=== PATIENT | female | born 1980 | race Caucasian/White ===

== ENCOUNTER → 2020-09-06 12:57 | Outpatient (BNVA) | payer MEDICAID, SELFPAY | PROVIDERS: PCP Internal Medicine; Visit Provider Internal Medicine | DX: S40.011A Contusion of right shoulder, initial encounter (principal); S50.01XA Contusion of right elbow, initial encounter; S30.0XXA Contusion of lower back and pelvis, initial encounter; W18.2XXA Fall in (into) shower or empty bathtub, initial encounter | CPT/HCPCS: 73030; 99203 ==

== ENCOUNTER → 2020-09-08 14:28 | Outpatient (BNVA) | payer MEDICAID, SELFPAY | PROVIDERS: PCP Hospitalist; Visit Provider Internal Medicine | DX: S40.011A Contusion of right shoulder, initial encounter (principal); S60.211A Contusion of right wrist, initial encounter; S30.0XXA Contusion of lower back and pelvis, initial encounter; W18.2XXA Fall in (into) shower or empty bathtub, initial encounter | CPT/HCPCS: 99213 ==

== ENCOUNTER 2020-12-12 12:15 | Outpatient (REF) | payer OTHER, SELFPAY ==
[2020-12-12 13:17] LABS: Erythrocyte Sedimentation Rate 5 MM/HR (0-20)
[2020-12-12 13:59] LABS: Rheumatoid Factor < 15.0 IU/mL (<15.0)
[2020-12-12 14:22] LABS: TSH reflex Free T4 1.17 mIU/mL (0.32-4.0)
[2020-12-14 12:21] LABS: CRP High Sensitivity 0.8 mg/L
== END 2020-12-12 12:16 | disposition home or self-care (01) ==
LOC: HO.LAB 12:15
PROVIDERS: PCP Hospitalist; Visit Provider Hospitalist
DX: M19.041 Primary osteoarthritis, right hand (principal); M19.042 Primary osteoarthritis, left hand; R53.82 Chronic fatigue, unspecified
CPT/HCPCS: 36415; 84443; 85652; 86141; 86431

== ENCOUNTER 2021-06-13 10:33 | Outpatient (REF) | payer OTHER, SELFPAY ==
[2021-06-14 09:09] LABS: CT PCR NOT DETECTED (Not Detect.); NG PCR NOT DETECTED (Not Detect.)
[2021-06-15 16:51] LABS: HPV mRNA E6/E7 rflx Not Detected (Not Detected)
== END 2021-06-13 10:34 | disposition home or self-care (01) ==
LOC: HO.LAB 10:33
PROVIDERS: Visit Provider Advanced Practice Midwife
DX: Z01.411 Encounter for gynecological examination (general) (routine) with abnormal findings (principal); Z11.51 Encounter for screening for human papillomavirus (HPV); Z11.3 Encounter for screening for infections with a predominantly sexual mode of transmission; Z98.890 Other specified postprocedural states; B00.9 Herpesviral infection, unspecified
CPT/HCPCS: 87491; 87591; 87624; 88142

== ENCOUNTER 2021-07-11 10:22 | Outpatient (REF) | payer OTHER, SELFPAY ==
[2021-07-11 16:08] LABS: CT PCR NOT DETECTED (Not Detect.); NG PCR NOT DETECTED (Not Detect.)
== END 2021-07-11 10:23 | disposition home or self-care (01) ==
LOC: HO.LAB 10:22
PROVIDERS: Visit Provider Obstetrics & Gynecology
DX: Z30.09 Encounter for other general counseling and advice on contraception (principal)
CPT/HCPCS: 87491; 87591

== ENCOUNTER → 2021-07-20 15:16 | Outpatient (BNVA) | payer OTHER, SELFPAY | PROVIDERS: Visit Provider Obstetrics & Gynecology ==

== ENCOUNTER 2021-07-28 11:15 | Outpatient (REF) | payer OTHER, SELFPAY | END 2021-07-28 11:16 | disposition home or self-care (01) | LOC: HO.LNP 11:15 | PROVIDERS: Visit Provider Family Medicine | DX: Z00.00 Encounter for general adult medical examination without abnormal findings (principal); B34.9 Viral infection, unspecified | CPT/HCPCS: U0003; U0005 ==

== ENCOUNTER 2021-08-08 11:40 | Outpatient (REF) | payer OTHER, SELFPAY ==
--- NOTE | ~2021-08-08 | MM_ITS ---
EXAMINATION: MM SCREENING DIGITAL BREAST TOMOSYNTHESIS, BILATERAL CLINICAL INFORMATION: Screening. Asymptomatic. The lifetime risk of breast cancer based on the Tyrer-Cuzick Model is 12.2%. COMPARISON: Mammography: None TECHNIQUE: Digital breast tomosynthesis is performed in both the craniocaudal and mediolateral oblique views along with computer-aided detection (CAD). Synthesized 2D images are generated from the tomosynthesis. Additional left exaggerated craniocaudal view performed. FINDINGS: The breasts are extremely dense, which lowers the sensitivity of mammography (ACR BI-RADS breast composition Category d). There is question of a partially circumscribed density about the medial aspect of the right breast approximately 3 cm from the nipple measuring approximately 1 cm in diameter. This may represent dense breast parenchyma rather than a true mass. No mediolateral oblique view correlate is identified. No suspicious abnormal dominant masses or microcalcifications seen within the left breast. MM/MM tomosynthesis screening BI IMPRESSION: Right breast density for further evaluation with spot compression view. ASSESSMENT: BI-RADS 0: Incomplete - Need Additional Imaging Evaluation RECOMMENDATION: 1. Additional views of the right breast. 2. Targeted ultrasound if warranted after review of the additional views. 3. Radiology department staff will contact the patient for additional imaging. This patient's information was entered into a reminder system with a target due date for their next mammogram.
== END 2021-08-08 11:41 | disposition home or self-care (01) ==
LOC: HO.MAMMO 11:40
PROVIDERS: PCP Hospitalist; Visit Provider Advanced Practice Midwife
DX: Z12.31 Encounter for screening mammogram for malignant neoplasm of breast (principal)
CPT/HCPCS: 77063; 77067

== ENCOUNTER 2021-08-17 12:43 | Outpatient (REF) | payer OTHER, SELFPAY ==
--- NOTE | ~2021-08-17 | MM_ITS ---
EXAMINATION: MM DIAGNOSTIC DIGITAL BREAST TOMOSYNTHESIS, RIGHT CLINICAL INFORMATION: Recall from baseline exam for question of partially circumscribed density right breast. TC score 12%. COMPARISON: Baseline mammography 08/08/2021 TECHNIQUE: Digital breast tomosynthesis is performed. 2D images are generated from the tomosynthesis. The following views are obtained: Rolled CC x2, spot CC FINDINGS: The breasts are heterogeneously dense, which may obscure small masses (ACR BI-RADS breast composition Category c). Breast tissue composition borders on extremely dense. The additional views show no mass or architectural abnormality. There is no suspicious parenchymal asymmetry. Results are discussed with the patient at time of visit. MM/MM tomosynthesis added views R IMPRESSION: Additional views are unremarkable. ASSESSMENT: BI-RADS 1: Negative RECOMMENDATION: Routine annual mammography screening. This patient's information was entered into a reminder system with a target due date for their next mammogram.
== END 2021-08-17 12:44 | disposition home or self-care (01) ==
LOC: HO.MAMMO 12:43
PROVIDERS: Visit Provider Advanced Practice Midwife
DX: R92.2 Inconclusive mammogram (principal)
CPT/HCPCS: 77061; 77065

== ENCOUNTER → 2021-08-22 12:39 | Outpatient (BNVA) | payer OTHER, SELFPAY | PROVIDERS: PCP Hospitalist; Visit Provider Obstetrics & Gynecology ==

== ENCOUNTER 2021-09-15 13:58 | Outpatient (REF) | payer OTHER, SELFPAY ==
[2021-09-15 14:12] LABS: Appearance Urine CLOUDY; Color Urine YELLOW; Glucose Urine UA NEG (NEG); Leukocyte Esterase Urine 3+ (NEG); Nitrite Urine NEG (NEG); Specific Gravity - Urine <= 1.005 (1.005-1.025); Urine Blood 3+ (NEG); Urine Ketones NEG (NEG); Urine Protein TRACE MG/DL (NEG-TRACE)
[2021-09-15 14:27] LABS: Bacteria Urine 2+ /LPF; Squamous Epithelial Cell Urine 1+ /LPF; WBC Clumps Urine NOTED
== END 2021-09-15 13:59 | disposition home or self-care (01) ==
LOC: HO.LNP 13:58
PROVIDERS: Visit Provider Hospitalist
DX: R30.0 Dysuria (principal)
CPT/HCPCS: 81001; 81003

== ENCOUNTER 2021-09-15 14:37 | Outpatient (REF) | payer OTHER, SELFPAY | END 2021-09-15 14:38 | disposition home or self-care (01) | LOC: HO.LAB 14:37 | PROVIDERS: Visit Provider Hospitalist | DX: N39.0 Urinary tract infection, site not specified (principal) | CPT/HCPCS: 87086; 87147 ==

== ENCOUNTER 2021-11-07 11:29 | Outpatient (REF) | payer OTHER, SELFPAY ==
[2021-11-07 14:57] LABS: Anion Gap 8 (12-20); Blood Urea Nitrogen 16 mg/dL (9-16); Calcium 9.6 mg/dL (8.4-10.2); Carbon Dioxide 28 mmol/L (22-29); Chloride 107 mmol/L (96-108); Estimated Glomerular Filt Rate > 60; Glucose Random 80 mg/dL (60-115); Potassium 4.2 mmol/L (3.3-5.1); Sodium 139 mmol/L (135-145)
== END 2021-11-07 11:30 | disposition home or self-care (01) ==
LOC: HO.WFDLDS 11:29
PROVIDERS: Visit Provider Hospitalist
DX: M54.41 Lumbago with sciatica, right side (principal); Z87.440 Personal history of urinary (tract) infections
CPT/HCPCS: 36415; 80048; 87086

== ENCOUNTER 2022-09-26 11:25 | Emergency (ER) | payer OTHER, SELFPAY ==
--- NOTE | 2022-09-26 11:29 | ECG_ITS ---
Test Reason : cp Blood Pressure : / mmHG Vent. Rate : 069 BPM Atrial Rate : 069 BPM P-R Int : 138 ms QRS Dur : 088 ms QT Int : 388 ms P-R-T Axes : 065 078 024 degrees QTc Int : 415 ms Normal sinus rhythm with sinus arrhythmia RSR' or QR pattern in V1 suggests right ventricular conduction delay Otherwise normal ECG When compared with ECG of 22-JUL-2018 14:20, No significant change was found Referred By: Generic ED Physician Electronically Signed By:IVONNE FARIAS MD
--- NOTE | 2022-09-26 11:37 | ED_ITS ---
HPI - General Adult General Chief complaint: Arrhythmia/Palpitations <Anne Davis MD - Last Filed: 09/26/22 11:42> Stated complaint: Elevated Heart Rate Dizzy Chest Discomfort <Anne Davis MD - Last Filed: 09/26/22 11:42> Time Seen by Provider: 09/26/22 16:09 <Anne Davis MD - Last Filed: 09/26/22 11:42> Source: patient <Rene Baugh MD - Last Filed: 09/26/22 16:53> Mode of arrival: ambulatory <Rene Baugh MD - Last Filed: 09/26/22 16:53> Limitations: no limitations <Rene Buagh MD - Last Filed: 09/26/22 16:53> History of Present Illness HPI narrative: 41-year-old female with no significant past medical history presents to the emergency department today with palpitations. 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 Patient's states she has had these episodes previously, associated with some chest pain which is midsternal, pressure-like and nonradiating. There are no other associated symptoms such as nausea or shortness of breath. The patient states that since she has been here the pressure-like pain has diminished significantly and she does not feel palpitations. She has no risk factors for pulmonary embolism, has no cardiac risk factors except for cigarette smoking. <Rene Baugh MD - Last Filed: 09/26/22 16:53> Onset (ago): hour(s) (2) <Rene Baugh MD - Last Filed: 09/26/22 16:53> Location: chest <Rene Baugh MD - Last Filed: 09/26/22 16:53> Radiation: non-radiation <Rene Baugh MD - Last Filed: 09/26/22 16:53> Severity: moderate <Rene Baugh MD - Last Filed: 09/26/22 16:53> Quality: dull <Rene Baugh MD - Last Filed: 09/26/22 16:53> Pain Consistency: now resolved <Rene Baugh MD - Last Filed: 09/26/22 16:53> Relieving factors: none <Rene Baugh MD - Last Filed: 09/26/22 16:53> Exacerbating factors: none <Rene Baugh MD - Last Filed: 09/26/22 16:53> Associated symptoms: denies other symptoms <Rene Baugh MD - Last Filed: 09/26/22 16:53> Treatments prior to arrival: none <Rene Baugh MD - Last Filed: 09/26/22 16:53> Related Data Home medications: Home Medications Medication Instructions Recorded Confirmed omeprazole 20 mg tablet,delayed 20 mg PO DAILY 09/15/20 08/03/21 release levonorgestrel 20 mcg/24 hours (8 0 insert intrauterine ONCE 08/03/21 08/03/21 yrs) 52 mg intrauterine device (Mirena) fluoxetine 20 mg capsule 20 mg PO DAILY 11/07/21 Previous Rx's Medication Instructions Recorded hydroxyzine HCl 25 mg tablet 25 mg PO QID PRN itching 1 month 08/03/21 #90 tabs valacyclovir 1 gram tablet 1,000 mg PO DAILY herpatic 11/07/21 (Valtrex) outbreaks #7 tabs gabapentin 300 mg capsule 300 mg PO Q8H #90 caps 11/21/21 ibuprofen 800 mg tablet 800 mg PO Q8H #90 tabs 11/21/21 <Anne Davis MD - Last Filed: 09/26/22 11:42> Allergies/adverse reactions: Allergies Allergy/AdvReac Type Severity Reaction Status Date / Time No Known Allergies Allergy Verified 11/21/21 13:54 <Anne Davis MD - Last Filed: 09/26/22 11:42> Review of Systems Review of Systems: Yes all other systems are reviewed and are negative <Rene Baugh MD - Last Filed: 09/26/22 16:53> Constitutional: Constitutional: Denies chills, Denies fever(s) and Denies weakness <Rene Baugh MD - Last Filed: 09/26/22 16:53> Eyes: Eyes: Reports no additional eye complaints <Rene Baugh MD - Last Filed: 09/26/22 16:53> ENT: Reports system reviewed and no additional complaints, except as documented <Rene Baugh MD - Last Filed: 09/26/22 16:53> Cardiovascular: Cardiovascular: Reports chest pain, Reports chest pain at rest, Denies syncope, Reports rapid heart rate, Denies pedal edema, Denies edema and Denies dyspnea <Rene Baugh MD - Last Filed: 09/26/22 16:53> Respiratory: Respiratory: Denies cough, Denies dyspnea and Denies wheezing <Rene Baugh MD - Last Filed: 09/26/22 16:53> Gastrointestinal: Gastrointestinal: Reports no additional gastrointestinal complaints <Rene Baugh MD - Last Filed: 09/26/22 16:53> Genitourinary: Genitourinary: Reports no additional female genitourinary complaints <Rene Baugh MD - Last Filed: 09/26/22 16:53> Musculoskeletal: Musculoskeletal: Denies back pain, Denies myalgias and Denies muscle weakness <Rene Baugh MD - Last Filed: 09/26/22 16:53> Integumentary/Breasts: Skin/Breast: Reports system reviewed and no additional complaints, except as docu <Rene Baugh MD - Last Filed: 09/26/22 16:53> Neurologic: Denies Abnormal speech present, Denies syncope and Denies weakness <Rene Baugh MD - Last Filed: 09/26/22 16:53> Psychiatric: Psychiatric: Denies depression, Denies hopelessness and Reports panic attacks <Rene Baugh MD - Last Filed: 09/26/22 16:53> Hematologic/Lymphatic: Hematologic/Lymphatic: Denies easy bleeding and Denies easy bruising <Rene Baugh MD - Last Filed: 09/26/22 16:53> Allergic/Immunologic: Allergic/Immunologic: Denies wheezing <Rene Baugh MD - Last Filed: 09/26/22 16:53> [facility] Past Medical History Attestation statement: The following information was validated with the patient. <Rene Baugh MD - Last Filed: 09/26/22 16:53> [facility] Narrative: Patient states she has a history of PTSD and depression and is on fluoxetine <Rene Baugh MD - Last Filed: 09/26/22 16:53> Medical History: Medical History Depression PTSD (post-traumatic stress disorder) <Anne Davis MD - Last Filed: 09/26/22 11:42> Surgical History: Surgical History Ectopic History of miscarriage History of surgery <Anne Davis MD - Last Filed: 09/26/22 11:42> Family History Family History: Family History Father No problems noted. Mother Hypertension Maternal Grandmother Diabetes Breast cancer Maternal Grandfather Diabetes Maternal Uncle Diabetes <Anne Davis MD - Last Filed: 09/26/22 11:42> Social History Social History: Social History Housing: Other Housing Other:: complex Patient Tobacco Use Status: Current someday Tobacco user Cigarettes Per Day: 6 e-Cigarette/Vaping Use: Never Used Second Hand Smoke Exposure: No Advance Directives: No Advance Directives Information Provided: No Current occupational status: employed <Anne Davis MD - Last Filed: 09/26/22 11:42> Physical Exam ED Vital Signs: Vital Signs - 24 hr 09/26/22 11:39 Temperature 98.1 F Pulse Rate 80 Respiratory Rate 16 Blood Pressure 113/75 Pulse Oximetry 100 Oxygen Delivery Method Room Air BMI result Body Mass Index 21.1 <Anne Davis MD - Last Filed: 09/26/22 11:42> Vital Signs - 24 hr 09/26/22 11:39 Temperature 98.1 F Pulse Rate 80 Respiratory Rate 16 Blood Pressure 113/75 Pulse Oximetry 100 Oxygen Delivery Method Room Air BMI result Body Mass Index 21.1 <Rene Baugh MD - Last Filed: 09/26/22 16:53> Vital signs are normal. Pulse oximetry is normal <Rene Baugh MD - Las t Filed: 09/26/22 16:53> Const General: cooperative, healthy appearing, comfortable and no acute distress <Rene Baugh MD - Last Filed: 09/26/22 16:53> Nutritional Appearance: average body habitus <Rene Buagh MD - Last Filed: 09/26/22 16:53> Orientation/consciousness: patient oriented x3 <Rene Baugh MD - Last Filed: 09/26/22 16:53> HENMT Head: Yes normal to inspection, Yes normocephalic and Yes atraumatic <Rene Baugh MD - Last Filed: 09/26/22 16:53> Ears: hearing grossly normal bilaterally and external ears normal <Rene Baugh MD - Last Filed: 09/26/22 16:53> General nose exam: Normal external nose present <Rene Baugh MD - Last Filed: 09/26/22 16:53> Face and sinus: Yes normal facial exam <Rene Baugh MD - Last Filed: 09/26/22 16:53> Mouth: Normal oral and palatal mucosa present <Rene Baugh MD - Last Filed: 09/26/22 16:53> Eyes Eyelids: Yes eyelids normal <Rene Baugh MD - Last Filed: 09/26/22 16:53> Conjunctivae: conjunctivae normal <Rene Baugh MD - Last Filed: 09/26/22 16:53> Sclerae: sclerae normal <Rene Baugh MD - Last Filed: 09/26/22 16:53> Pupils: Equal, round and reactive pupils present <Rene Baugh MD - Last Filed: 09/26/22 16:53> EOM: EOMs intact bilaterally <Rene Baugh MD - Last Filed: 09/26/22 16:53> Neck Neck: Yes normal visual inspection and Yes full ROM <Rene Baugh MD - Last Filed: 09/26/22 16:53> Chest Chest palpation & inspection: normal inspection of the chest, no localized rib tenderness and no tenderness <Rene Baugh MD - Last Filed: 09/26/22 16:53> Resp Effort & Inspection: normal respiratory effort, able to speak in complete sentences and no cough <Rene Baugh MD - Last Filed: 09/26/22 16:53> Cardio Jugular venous distension: no JVD <Rene Baugh MD - Last Filed: 09/26/22 16:53> Palpation: normal PMI <Rene Baugh MD - Last Filed: 09/26/22 16:53> Rate: regular rate <eRne Baugh MD - Last Filed: 09/26/22 16:53> Rhythm: regular rhythm <Rene Baugh MD - Last Filed: 09/26/22 16:53> Heart sounds: S1 normal heart sound present, S2 normal heart sound present, no gallops, no murmurs and no rubs <Rene Baugh MD - Last Filed: 09/26/22 16:53> GI Inspection: Yes normal to inspection <Rene Baugh MD - Last Filed: 09/26/22 16:53> Back/Spine/Pelvis Cervical Spine: normal cervical lordosis and cervical ROM normal <Rene Baugh MD - Last Filed: 09/26/22 16:53> Thoracic/Lumbar Spine: thoracic and lumbar spine normal to inspection <Rene Baugh MD - Last Filed: 09/26/22 16:53> Skin General skin exam: no rashes or lesions noted, no erythema and no pallor <Rene Baugh MD - Last Filed: 09/26/22 16:53> Neuro General: patient oriented x3, gait normal and no focal motor deficits <Rene Baugh MD - Last Filed: 09/26/22 16:53> Cranial nerves: Yes CN's II-XII intact bilaterally and Yes Equal, round and reactive pupils present <Rene Baugh MD - Last Filed: 09/26/22 16:53> Cognition (Neuro): normal cognition <Rene Baugh MD - Last Filed: 09/26/22 16:53> Speech: No Abnormal speech present <Rene Baugh MD - Last Filed: 09/26/22 16:53> Gait exam (Neuro): Normal gait present <Rene Baugh MD - Last Filed: 09/26/22 16:53> Extrem General: No cyanosis and No edema <Rene Baugh MD - Last Filed: 09/26/22 16:53> Course Course Course Narrative: triage note: pt comes c/o palpitations, CP, lightheaded, has happened before, never passed out, this time lasted 20 minutes,, at work HR 180. works [employer] doctor in [facility] sent her here not on meds, takes fluoxetine for anxiety , never had holter chest soareness at this time hr controlled with deep breaths labs orderd, ekg wnl, sinus hr 69, qtc 415 possibly having episodes of SVT <Anne Davis MD - Last Filed: 09/26/22 11:42> Medical Decision Making [facility] Narrative Medical decision making narrative: 41-year-old female with no significant medical history presents to the emergency department today complaining of palpitations. The patient is noted to have normal laboratory studies including a normal troponin and normal EKG. The patient has never had a Holter monitor placed although, this has happened in the past. At this time, the patient will be discharged home to follow-up with her primary care doctor. She is instructed to ask for a Holter monitor, and will also try and obtain an EKG if this happens again while she is at work <Rene Baugh MD - Last Filed: 09/26/22 16:53> Differential Diagnosis Differential Diagnosis: SVT, atrial flutter, atrial fibrillation, ventricular tachycardia (unlikely <Rene Baugh MD - Last Filed: 09/26/22 16:53> Medical Records Medical records reviewed: Yes I reviewed the patient's medical records. <Rene Baugh MD - Last Filed: 09/26/22 16:53> Lab Data Lab results reviewed: Yes I reviewed the patient's lab results. <Rene Baugh MD - Last Filed: 09/26/22 16:53> Result diagrams: : 09/26/22 11:50 09/26/22 11:50 <Anne Davis MD - Last Filed: 09/26/22 11:42> Labs: Lab Results 09/26/22 09/26/22 09/26/22 Range/Units 11:50 11:50 11:50 WBC 6.9 (4.8-10.8) X10*3/uL RBC 4.73 (4.20-5.50) X10*6/uL Hgb 14.0 (12.0-16.0) g/dl Hct 42.5 (37.0-47.0) % MCV 89.9 (80.0-98.0) fL MCH 29.6 (27.0-33.0) pg MCHC 32.9 (31.0-35.0) g/dl RDW 13.4 (11.0-16.0) % Plt Count 283 (160-400) X10*3/uL MPV 9.6 (9.4-12.3) fL Immature Gran % (Auto) 0.1 (0.0-0.4) % Neut % (Auto) 57.1 (45-73) % Lymph % (Auto) 32.8 (20-40) % [place] % (Auto) 7.8 (2-11) % Eos % (Auto) 1.6 (0-4) % Baso % (Auto) 0.6 (0-2) % Lymph # (Auto) 2.3 (1.2-4.9) X10*3/uL [place] # (Auto) 0.5 (0.1-1.2) X10*3/uL Eos # (Auto) 0.1 (0.0-0.4) X10*3/uL Baso # (Auto) 0.0 (0.0-0.2) X10*3/uL Abs Immat Gran (auto) 0.01 (0.00-0.03) X10*3/uL Absolute Neuts (auto) 3.9 (2.0-8.3) x10*3/uL Absolute Nucleated RBC 0.000 (0.0-0.012) X10*3/uL Nucleated RBC % (auto) 0.0 (0.0-0.2) /100WBC Sodium 140 (135-145) mmol/L Potassium 4.3 (3.3-5.1) mmol/L Chloride 105 (96-108) mmol/L Carbon Dioxide 27 (22-29) mmol/L Anion Gap 12 (12-20) BUN 17 H (9-16) mg/dL Creatinine 0.75 (0.5-1.4) mg/dL Estim Creat Clear Calc 94.4 Estimated GFR > 60 Random Glucose 83 (60-115) mg/dL Calcium 9.7 (8.4-10.2) mg/dL Total Bilirubin 0.4 (0.0-1.0) mg/dL Direct Bilirubin 0.2 (0.0-0.5) mg/dL AST 13 (5-31) U/L ALT 9 (0-31) U/L Alkaline Phosphatase 56 (39-117) U/L Troponin I High Sens < 3.5 (<3.5-17.0) ng/L B-Natriuretic Peptide (<100) pg/mL Total Protein 7.8 (6.5-8.0) g/dL Albumin 4.6 (3.5-5.0) g/dL TSH (0.32-4.0) uIU/mL Beta HCG, Quant mIU/mL 09/26/22 09/26/22 09/26/22 Range/Units 11:50 11:50 11:50 WBC (4.8-10.8) X10*3/uL RBC (4.20-5.50) X10*6/uL Hgb (12.0-16.0) g/dl Hct (37.0-47.0) % MCV (80.0-98.0) fL MCH (27.0-33.0) pg MCHC (31.0-35.0) g/dl RDW (11.0-16.0) % Plt Count (160-400) X10*3/uL MPV (9.4-12.3) fL Immature Gran % (Auto) (0.0-0.4) % Neut % (Auto) (45-73) % Lymph % (Auto) (20-40) % [place] % (Auto) (2-11) % Eos % (Auto) (0-4) % Baso % (Auto) (0-2) % Lymph # (Auto) (1.2-4.9) X10*3/uL [place] # (Auto) (0.1-1.2) X10*3/uL Eos # (Auto) (0.0-0.4) X10*3/uL Baso # (Auto) (0.0-0.2) X10*3/uL Abs Immat Gran (auto) (0.00-0.03) X10*3/uL Absolute Neuts (auto) (2.0-8.3) x10*3/uL Absolute Nucleated RBC (0.0-0.012) X10*3/uL Nucleated RBC % (auto) (0.0-0.2) /100WBC Sodium (135-145) mmol/L Potassium (3.3-5.1) mmol/L Chloride (96-108) mmol/L Carbon Dioxide (22-29) mmol/L Anion Gap (12-20) BUN (9-16) mg/dL Creatinine (0.5-1.4) mg/dL Estim Creat Clear Calc Estimated GFR Random Glucose (60-115) mg/dL Calcium (8.4-10.2) mg/dL Total Bilirubin (0.0-1.0) mg/dL Direct Bilirubin (0.0-0.5) mg/dL AST (5-31) U/L ALT (0-31) U/L Alkaline Phosphatase (39-117) U/L Troponin I High Sens (<3.5-17.0) ng/L B-Natriuretic Peptide 19 (<100) pg/mL Total Protein (6.5-8.0) g/dL Albumin (3.5-5.0) g/dL TSH 1.63 (0.32-4.0) uIU/mL Beta HCG, Quant < 2 mIU/mL 09/26/22 Range/Units 15:20 WBC (4.8-10.8) X10*3/uL RBC (4.20-5.50) X10*6/uL Hgb (12.0-16.0) g/dl Hct (37.0-47.0) % MCV (80.0-98.0) fL MCH (27.0-33.0) pg MCHC (31.0-35.0) g/dl RDW (11.0-16.0) % Plt Count (160-400) X10*3/uL MPV (9.4-12.3) fL Immature Gran % (Auto) (0.0-0.4) % Neut % (Auto) (45-73) % Lymph % (Auto) (20-40) % [place] % (Auto) (2-11) % Eos % (Auto) (0-4) % Baso % (Auto) (0-2) % Lymph # (Auto) (1.2-4.9) X10*3/uL [place] # (Auto) (0.1-1.2) X10*3/uL Eos # (Auto) (0.0-0.4) X10*3/uL Baso # (Auto) (0.0-0.2) X10*3/uL Abs Immat Gran (auto) (0.00-0.03) X10*3/uL Absolute Neuts (auto) (2.0-8.3) x10*3/uL Absolute Nucleated RBC (0.0-0.012) X10*3/uL Nucleated RBC % (auto) (0.0-0.2) /100WBC Sodium (135-145) mmol/L Potassium (3.3-5.1) mmol/L Chloride (96-108) mmol/L Carbon Dioxide (22-29) mmol/L Anion Gap (12-20) BUN (9-16) mg/dL Creatinine (0.5-1.4) mg/dL Estim Creat Clear Calc Estimated GFR Random Glucose (60-115) mg/dL Calcium (8.4-10.2) mg/dL Total Bilirubin (0.0-1.0) mg/dL Direct Bilirubin (0.0-0.5) mg/dL AST (5-31) U/L ALT (0-31) U/L Alkaline Phosphatase (39-117) U/L Troponin I High Sens < 3.5 (<3.5-17.0) ng/L B-Natriuretic Peptide (<100) pg/mL Total Protein (6.5-8.0) g/dL Albumin (3.5-5.0) g/dL TSH (0.32-4.0) uIU/mL Beta HCG, Quant mIU/mL <Anne Davis MD - Last Filed: 09/26/22 11:42> Lab Results 09/26/22 09/26/22 09/26/22 Range/Units 11:50 11:50 11:50 WBC 6.9 (4.8-10.8) X10*3/uL RBC 4.73 (4.20-5.50) X10*6/uL Hgb 14.0 (12.0-16.0) g/dl Hct 42.5 (37.0-47.0) % MCV 89.9 (80.0-98.0) fL MCH 29.6 (27.0-33.0) pg MCHC 32.9 (31.0-35.0) g/dl RDW 13.4 (11.0-16.0) % Plt Count 283 (160-400) X10*3/uL MPV 9.6 (9.4-12.3) fL Immature Gran % (Auto) 0.1 (0.0-0.4) % Neut % (Auto) 57.1 (45-73) % Lymph % (Auto) 32.8 (20-40) % [place] % (Auto) 7.8 (2-11) % Eos % (Auto) 1.6 (0-4) % Baso % (Auto) 0.6 (0-2) % Lymph # (Auto) 2.3 (1.2-4.9) X10*3/uL [place] # (Auto) 0.5 (0.1-1.2) X10*3/uL Eos # (Auto) 0.1 (0.0-0.4) X10*3/uL Baso # (Auto) 0.0 (0.0-0.2) X10*3/uL Abs Immat Gran (auto) 0.01 (0.00-0.03) X10*3/uL Absolute Neuts (auto) 3.9 (2.0-8.3) x10*3/uL Absolute Nucleated RBC 0.000 (0.0-0.012) X10*3/uL Nucleated RBC % (auto) 0.0 (0.0-0.2) /100WBC Sodium 140 (135-145) mmol/L Potassium 4.3 (3.3-5.1) mmol/L Chloride 105 (96-108) mmol/L Carbon Dioxide 27 (22-29) mmol/L Anion Gap 12 (12-20) BUN 17 H (9-16) mg/dL Creatinine 0.75 (0.5-1.4) mg/dL Estim Creat Clear Calc 94.4 Estimated GFR > 60 Random Glucose 83 (60-115) mg/dL Calcium 9.7 (8.4-10.2) mg/dL Total Bilirubin 0.4 (0.0-1.0) mg/dL Direct Bilirubin 0.2 (0.0-0.5) mg/dL AST 13 (5-31) U/L ALT 9 (0-31) U/L Alkaline Phosphatase 56 (39-117) U/L Troponin I High Sens < 3.5 (<3.5-17.0) ng/L B-Natriuretic Peptide (<100) pg/mL Total Protein 7.8 (6.5-8.0) g/dL Albumin 4.6 (3.5-5.0) g/dL TSH (0.32-4.0) uIU/mL Beta HCG, Quant mIU/mL 09/26/22 09/26/22 09/26/22 Range/Units 11:50 11:50 11:50 WBC (4.8-10.8) X10*3/uL RBC (4.20-5.50) X10*6/uL Hgb (12.0-16.0) g/dl Hct (37.0-47.0) % MCV (80.0-98.0) fL MCH (27.0-33.0) pg MCHC (31.0-35.0) g/dl RDW (11.0-16.0) % Plt Count (160-400) X10*3/uL MPV (9.4-12.3) fL Immature Gran % (Auto) (0.0-0.4) % Neut % (Auto) (45-73) % Lymph % (Auto) (20-40) % [place] % (Auto) (2-11) % Eos % (Auto) (0-4) % Baso % (Auto) (0-2) % Lymph # (Auto) (1.2-4.9) X10*3/uL [place] # (Auto) (0.1-1.2) X10*3/uL Eos # (Auto) (0.0-0.4) X10*3/uL Baso # (Auto) (0.0-0.2) X10*3/uL Abs Immat Gran (auto) (0.00-0.03) X10*3/uL Absolute Neuts (auto) (2.0-8.3) x10*3/uL Absolute Nucleated RBC (0.0-0.012) X10*3/uL Nucleated RBC % (auto) (0.0-0.2) /100WBC Sodium (135-145) mmol/L Potassium (3.3-5.1) mmol/L Chloride (96-108) mmol/L Carbon Dioxide (22-29) mmol/L Anion Gap (12-20) BUN (9-16) mg/dL Creatinine (0.5-1.4) mg/dL Estim Creat Clear Calc Estimated GFR Random Glucose (60-115) mg/dL Calcium (8.4-10.2) mg/dL Total Bilirubin (0.0-1.0) mg/dL Direct Bilirubin (0.0-0.5) mg/dL AST (5-31) U/L ALT (0-31) U/L Alkaline Phosphatase (39-117) U/L Troponin I High Sens (<3.5-17.0) ng/L B-Natriuretic Peptide 19 (<100) pg/mL Total Protein (6.5-8.0) g/dL Albumin (3.5-5.0) g/dL TSH 1.63 (0.32-4.0) uIU/mL Beta HCG, Quant < 2 mIU/mL 09/26/22 Range/Units 15:20 WBC (4.8-10.8) X10*3/uL RBC (4.20-5.50) X10*6/uL Hgb (12.0-16.0) g/dl Hct (37.0-47.0) % MCV (80.0-98.0) fL MCH (27.0-33.0) pg MCHC (31.0-35.0) g/dl RDW (11.0-16.0) % Plt Count (160-400) X10*3/uL MPV (9.4-12.3) fL Immature Gran % (Auto) (0.0-0.4) % Neut % (Auto) (45-73) % Lymph % (Auto) (20-40) % [place] % (Auto) (2-11) % Eos % (Auto) (0-4) % Baso % (Auto) (0-2) % Lymph # (Auto) (1.2-4.9) X10*3/uL [place] # (Auto) (0.1-1.2) X10*3/uL Eos # (Auto) (0.0-0.4) X10*3/uL Baso # (Auto) (0.0-0.2) X10*3/uL Abs Immat Gran (auto) (0.00-0.03) X10*3/uL Absolute Neuts (auto) (2.0-8.3) x10*3/uL Absolute Nucleated RBC (0.0-0.012) X10*3/uL Nucleated RBC % (auto) (0.0-0.2) /100WBC Sodium (135-145) mmol/L Potassium (3.3-5.1) mmol/L Chloride (96-108) mmol/L Carbon Dioxide (22-29) mmol/L Anion Gap (12-20) BUN (9-16) mg/dL Creatinine (0.5-1.4) mg/dL Estim Creat Clear Calc Estimated GFR Random Glucose (60-115) mg/dL Calcium (8.4-10.2) mg/dL Total Bilirubin (0.0-1.0) mg/dL Direct Bilirubin (0.0-0.5) mg/dL AST (5-31) U/L ALT (0-31) U/L Alkaline Phosphatase (39-117) U/L Troponin I High Sens < 3.5 (<3.5-17.0) ng/L B-Natriuretic Peptide (<100) pg/mL Total Protein (6.5-8.0) g/dL Albumin (3.5-5.0) g/dL TSH (0.32-4.0) uIU/mL Beta HCG, Quant mIU/mL <Rene Baugh MD - Last Filed: 09/26/22 16:53> ECG Data Attestation: I personally reviewed and interpreted this ECG as follows: <Rene Baugh MD - Last Filed: 09/26/22 16:53> Prior ECG tracings: available for review <Rene Baugh MD - Last Filed: 09/26/22 16:53> Interpretation: Normal sinus rhythm at 69, with normal intervals and normal axis. No ST or T-wave changes. Comparison to prior EKG from 2018 reveals no interval changes. <Rene Baugh MD - Last Filed: 09/26/22 16:53> Discharge Plan Discharge Clinical Impression: Palpitations Chest pain Qualifiers: Chest pain type: unspecified Qualified Code(s): R07.9 - Chest pain, unspecified <Anne Davis MD - Last Filed: 09/26/22 11:42> Patient Disposition: Home, Self-Care <Anne Davis MD - Last Filed: 09/26/22 11:42> Instructions: Chest Pain (ED), Heart Palpitations (ED) <Anne Davis MD - Last Filed: 09/26/22 11:42> Additional Instructions: Call your primary care doctor tomorrow and request a Holter monitor <Anne Davis MD - Last Filed: 09/26/22 11:42> Prescriptions: No Action omeprazole 20 mg tablet,delayed release (DR/EC) 20 mg PO DAILY Mirena 20 mcg/24 hours (6 yrs) 52 mg intrauterine device 0 insert intrauterine ONCE hydroxyzine HCl 25 mg tablet 25 mg PO QID PRN (Reason: itching) 30 Days Qty: 90 0RF fluoxetine 20 mg capsule 20 mg PO DAILY valacyclovir [Valtrex] 1 gram tablet 1,000 mg PO DAILY Qty: 7 0RF ibuprofen 800 mg tablet 800 mg PO Q8H Qty: 90 2RF gabapentin 300 mg capsule 300 mg PO Q8H Qty: 90 3RF Rx Instructions: she should increase to a third dose daily <Anne Davis MD - Last Filed: 09/26/22 11:42> Referrals: Lilia Pickett, [employer] [Primary Care Provider] - 1 day (Request Holter monitor and follow-up) <Anne Davis MD - Last Filed: 09/26/22 11:42>
[2022-09-26 11:39] VITALS: BP 113/75; PULSE 80; RESP 16; TEMP 36.7; O2SAT 100; BMI 21.1
[2022-09-26 11:55] LABS: MANUAL DIFF FLAG NO
[2022-09-26 11:56] LABS: Basophils Percent Auto 0.6 % (0-2); Eosinophils Absolute Auto 0.1 X10*3/uL (0.0-0.4); Eosinophils Percent Auto 1.6 % (0-4); Hematocrit 42.5 % (37.0-47.0); Imm Gran Abs Auto 0.01 X10*3/uL (0.00-0.03); Imm Gran Pct Auto 0.1 % (0.0-0.4); Lymphocytes Absolute Auto 2.3 X10*3/uL (1.2-4.9); Lymphocytes Percent Auto 32.8 % (20-40); Mean Corpuscular HGB Conc 32.9 g/dl (31.0-35.0); Mean Corpuscular Hemoglobin 29.6 pg (27.0-33.0); Mean Corpuscular Volume 89.9 fL (80.0-98.0); Mean Platelet Volume 9.6 fL (9.4-12.3); Monocytes Absolute Auto 0.5 X10*3/uL (0.1-1.2); Monocytes Percent Auto 7.8 % (2-11); Neutrophils Absolute Auto 3.9 x10*3/uL (2.0-8.3); Neutrophils Percent Auto 57.1 % (45-73); Platelet Count 283 X10*3/uL (160-400); Red Blood Count 4.73 X10*6/uL (4.20-5.50); Red Cell Distribution Width 13.4 % (11.0-16.0); White Blood Count 6.9 X10*3/uL (4.8-10.8)
[2022-09-26 12:23] LABS: Alanine Aminotransferase 9 U/L (0-31); Albumin Level 4.6 g/dL (3.5-5.0); Alkaline Phosphatase 56 U/L (39-117); Anion Gap 12 (12-20); Aspartate Amino Transferase 13 U/L (5-31); Bilirubin Direct 0.2 mg/dL (0.0-0.5); Bilirubin Total 0.4 mg/dL (0.0-1.0); Blood Urea Nitrogen 17 mg/dL (9-16); Calcium 9.7 mg/dL (8.4-10.2); Carbon Dioxide 27 mmol/L (22-29); Chloride 105 mmol/L (96-108); Creatinine Clr Calc Pharmacy 94.4; Estimated Glomerular Filt Rate > 60; Glucose Random 83 mg/dL (60-115); Potassium 4.3 mmol/L (3.3-5.1); Sodium 140 mmol/L (135-145); Total Protein 7.8 g/dL (6.5-8.0)
[2022-09-26 12:26] LABS: B Type Natriuretic Peptide 19 pg/mL (<100); HCG Quantitative < 2 mIU/mL; Troponin-I High Sensitivity < 3.5 ng/L (<3.5-17.0)
[2022-09-26 12:44] LABS: TSH reflex Free T4 1.63 uIU/mL (0.32-4.0)
[2022-09-26 15:58] LABS: Troponin-I High Sensitivity < 3.5 ng/L (<3.5-17.0)
--- NOTE | 2022-09-26 16:10 | ED.ARRPALP ---
HPI - Arrhythmia/Palpitations General Chief Complaint: Arrhythmia/Palpitations Stated Complaint: Elevated Heart Rate Dizzy Chest Discomfort Time Seen by Provider: 09/26/22 16:09 History of Present Illness HPI narrative: 41-year-old female with a past medical history palpitations, chest pain, UTI presents to the emergency department today with palpitations. Noticed the palpitations intermittently over the course of a few years. 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 Symptoms also included some chest pain, however the symptoms only lasted for approximately 1-2 hours before subsiding. The patient did not attempt any maneuvers or take any medications to try and alleviate her symptoms. She does not have a current diagnosis. MD complaint: rapid heart beat and heart racing Onset (ago): hour(s) Duration: constant Severity: moderate Context: occurred during rest Associated symptoms: chest pain Related Data Home Medications Medication Instructions Recorded Confirmed omeprazole 20 mg tablet,delayed 20 mg PO DAILY 09/15/20 08/03/21 release levonorgestrel 20 mcg/24 hours (8 0 insert intrauterine ONCE 08/03/21 08/03/21 yrs) 52 mg intrauterine device (Mirena) fluoxetine 20 mg capsule 20 mg PO DAILY 11/07/21 Previous Rx's Medication Instructions Recorded hydroxyzine HCl 25 mg tablet 25 mg PO QID PRN itching 1 month 08/03/21 #90 tabs valacyclovir 1 gram tablet 1,000 mg PO DAILY herpatic 11/07/21 (Valtrex) outbreaks #7 tabs gabapentin 300 mg capsule 300 mg PO Q8H #90 caps 11/21/21 ibuprofen 800 mg tablet 800 mg PO Q8H #90 tabs 11/21/21 Allergies Allergy/AdvReac Type Severity Reaction Status Date / Time No Known Allergies Allergy Verified 11/21/21 13:54 Review of Systems Review of Systems: Yes all other systems are reviewed and are negative Constitutional: Constitutional: Denies chills, Denies fever(s) and Denies lethargy Eyes: Eyes: Reports no additional eye complaints ENT: Reports system reviewed and no additional complaints, except as documented and Denies dysphagia Cardiovascular: Cardiovascular: Reports chest pain, Reports rapid heart rate, Denies edema, Denies irregular heart rhythm, Denies lightheadedness, Denies Loss of Consciousness and Denies dyspnea Respiratory: Respiratory: Denies chest congestion, Denies cough and Denies dyspnea Gastrointestinal: Gastrointestinal: Denies abdominal pain, Denies GI cramping and Denies dysphagia Genitourinary: Genitourinary: Reports no additional female genitourinary complaints Musculoskeletal: Musculoskeletal: Reports no additional musculoskeletal complaints Neurologic: Reports system reviewed and no additional complaints, except as documented and Denies Abnormal speech present Endocrine: Endocrine: Denies polyphagia and Denies polydipsia [facility] Past Medical History Medical History Depression PTSD (post-traumatic stress disorder) Surgical History Ectopic History of miscarriage History of surgery Family History Family History Father No problems noted. Mother Hypertension Maternal Grandmother Diabetes Breast cancer Maternal Grandfather Diabetes Maternal Uncle Diabetes Social History Social History Housing: Other Housing Other:: complex Patient Tobacco Use Status: Current someday Tobacco user Cigarettes Per Day: 6 e-Cigarette/Vaping Use: Never Used Second Hand Smoke Exposure: No Advance Directives: No Advance Directives Information Provided: No Current occupational status: employed Physical Exam Vital Signs: Vital Signs: Last Vital Signs Temp 98.1 F 09/26/22 16:45 Pulse 59 09/26/22 16:45 Resp 18 09/26/22 16:45 BP 117/86 09/26/22 16:45 Pulse Ox 100 09/26/22 16:45 O2 Del Method 09/26/22 16:45 BMI result Body Mass Index 21.1 Vital signs are noted to be stable and normal Const: General: cooperative, healthy appearing, comfortable and no acute distress Orientation/consciousness: patient oriented x3 HEENT: Head: Yes normal to inspection, Yes normocephalic and Yes atraumatic Ears: hearing grossly normal bilaterally and external ears normal General nose exam: Normal external nose present Face and sinus: Yes normal facial exam Mouth: Normal oral and palatal mucosa present Eyes: General: appearance normal, both eyes and all related structures Eyelids: Yes eyelids normal Conjunctivae: conjunctivae normal Sclerae: sclerae normal Pupils: Equal, round and reactive pupils present EOM: EOMs intact bilaterally Neck: Neck: Yes normal visual inspection and Yes full ROM Chest: Chest palpation & inspection: normal inspection of the chest Resp: Effort & Inspection: normal respiratory effort, able to speak in complete sentences and no cough Cardio: Palpation: normal PMI Rate: regular rate Rhythm: regular rhythm Heart sounds: S1 normal heart sound present, S2 normal heart sound present and no murmurs GI: Inspection: Yes normal to inspection and No Abdominal wall edema Back/Spine/Pelvis: Cervical Spine: normal cervical lordosis and cervical ROM normal Thoracic/Lumbar Spine: thoracic and lumbar spine normal to inspection Skin: General skin exam: no rashes or lesions noted, no mottling and no pallor Neuro: General: patient oriented x3, moves all extremities and CN's II-XI intact bilaterally Cranial nerves: Yes Equal, round and reactive pupils present and Yes Bilaterally intact EOM present Cognition (Neuro): normal cognition Speech: No Abnormal speech present Gait exam (Neuro): Normal gait present Course Course Course Narrative: Patient was observed in the emergency department of the [facility]. The patient was on monitor technician at all times, and there was no arrhythmia noted. MDM - Arrhythmia/Palpitations MDM Narrative Medical decision making narrative: The patient was noted to be asymptomatic while in the emergency department. Laboratory studies and EKG were normal. The patient was encouraged to follow up with her primary care doctor to obtain a Holter monitor and or event monitor depending upon the timing of her symptoms Differential Diagnosis Differential diagnosis: Likely palpitations, anxiety, sinus tachycardia, artial flutter and supraventricular tachycardia Medical Records Attestation: I reviewed the patient's medical records. Lab Data Attestation: I reviewed the patient's lab results. Lab results narrative: Laboratory studies reviewed and noted to be normal Result diagrams: 09/26/22 11:50 09/26/22 11:50 Labs: Lab Results 09/26/22 09/26/22 09/26/22 Range/Units 11:50 11:50 11:50 WBC 6.9 (4.8-10.8) X10*3/uL RBC 4.73 (4.20-5.50) X10*6/uL Hgb 14.0 (12.0-16.0) g/dl Hct 42.5 (37.0-47.0) % MCV 89.9 (80.0-98.0) fL MCH 29.6 (27.0-33.0) pg MCHC 32.9 (31.0-35.0) g/dl RDW 13.4 (11.0-16.0) % Plt Count 283 (160-400) X10*3/uL MPV 9.6 (9.4-12.3) fL Immature Gran % (Auto) 0.1 (0.0-0.4) % Neut % (Auto) 57.1 (45-73) % Lymph % (Auto) 32.8 (20-40) % Hettinger % (Auto) 7.8 (2-11) % Eos % (Auto) 1.6 (0-4) % Baso % (Auto) 0.6 (0-2) % Lymph # (Auto) 2.3 (1.2-4.9) X10*3/uL Hettinger # (Auto) 0.5 (0.1-1.2) X10*3/uL Eos # (Auto) 0.1 (0.0-0.4) X10*3/uL Baso # (Auto) 0.0 (0.0-0.2) X10*3/uL Abs Immat Gran (auto) 0.01 (0.00-0.03) X10*3/uL Absolute Neuts (auto) 3.9 (2.0-8.3) x10*3/uL Absolute Nucleated RBC 0.000 (0.0-0.012) X10*3/uL Nucleated RBC % (auto) 0.0 (0.0-0.2) /100WBC Sodium 140 (135-145) mmol/L Potassium 4.3 (3.3-5.1) mmol/L Chloride 105 (96-108) mmol/L Carbon Dioxide 27 (22-29) mmol/L Anion Gap 12 (12-20) BUN 17 H (9-16) mg/dL Creatinine 0.75 (0.5-1.4) mg/dL Estim Creat Clear Calc 94.4 Estimated GFR > 60 Random Glucose 83 (60-115) mg/dL Calcium 9.7 (8.4-10.2) mg/dL Total Bilirubin 0.4 (0.0-1.0) mg/dL Direct Bilirubin 0.2 (0.0-0.5) mg/dL AST 13 (5-31) U/L ALT 9 (0-31) U/L Alkaline Phosphatase 56 (39-117) U/L Troponin I High Sens < 3.5 (<3.5-17.0) ng/L B-Natriuretic Peptide (<100) pg/mL Total Protein 7.8 (6.5-8.0) g/dL Albumin 4.6 (3.5-5.0) g/dL TSH (0.32-4.0) uIU/mL Beta HCG, Quant mIU/mL 09/26/22 09/26/22 09/26/22 Range/Units 11:50 11:50 11:50 WBC (4.8-10.8) X10*3/uL RBC (4.20-5.50) X10*6/uL Hgb (12.0-16.0) g/dl Hct (37.0-47.0) % MCV (80.0-98.0) fL MCH (27.0-33.0) pg MCHC (31.0-35.0) g/dl RDW (11.0-16.0) % Plt Count (160-400) X10*3/uL MPV (9.4-12.3) fL Immature Gran % (Auto) (0.0-0.4) % Neut % (Auto) (45-73) % Lymph % (Auto) (20-40) % Hettinger % (Auto) (2-11) % Eos % (Auto) (0-4) % Baso % (Auto) (0-2) % Lymph # (Auto) (1.2-4.9) X10*3/uL Hettinger # (Auto) (0.1-1.2) X10*3/uL Eos # (Auto) (0.0-0.4) X10*3/uL Baso # (Auto) (0.0-0.2) X10*3/uL Abs Immat Gran (auto) (0.00-0.03) X10*3/uL Absolute Neuts (auto) (2.0-8.3) x10*3/uL Absolute Nucleated RBC (0.0-0.012) X10*3/uL Nucleated RBC % (auto) (0.0-0.2) /100WBC Sodium (135-145) mmol/L Potassium (3.3-5.1) mmol/L Chloride (96-108) mmol/L Carbon Dioxide (22-29) mmol/L Anion Gap (12-20) BUN (9-16) mg/dL Creatinine (0.5-1.4) mg/dL Estim Creat Clear Calc Estimated GFR Random Glucose (60-115) mg/dL Calcium (8.4-10.2) mg/dL Total Bilirubin (0.0-1.0) mg/dL Direct Bilirubin (0.0-0.5) mg/dL AST (5-31) U/L ALT (0-31) U/L Alkaline Phosphatase (39-117) U/L Troponin I High Sens (<3.5-17.0) ng/L B-Natriuretic Peptide 19 (<100) pg/mL Total Protein (6.5-8.0) g/dL Albumin (3.5-5.0) g/dL TSH 1.63 (0.32-4.0) uIU/mL Beta HCG, Quant < 2 mIU/mL 09/26/22 Range/Units 15:20 WBC (4.8-10.8) X10*3/uL RBC (4.20-5.50) X10*6/uL Hgb (12.0-16.0) g/dl Hct (37.0-47.0) % MCV (80.0-98.0) fL MCH (27.0-33.0) pg MCHC (31.0-35.0) g/dl RDW (11.0-16.0) % Plt Count (160-400) X10*3/uL MPV (9.4-12.3) fL Immature Gran % (Auto) (0.0-0.4) % Neut % (Auto) (45-73) % Lymph % (Auto) (20-40) % Hettinger % (Auto) (2-11) % Eos % (Auto) (0-4) % Baso % (Auto) (0-2) % Lymph # (Auto) (1.2-4.9) X10*3/uL Hettinger # (Auto) (0.1-1.2) X10*3/uL Eos # (Auto) (0.0-0.4) X10*3/uL Baso # (Auto) (0.0-0.2) X10*3/uL Abs Immat Gran (auto) (0.00-0.03) X10*3/uL Absolute Neuts (auto) (2.0-8.3) x10*3/uL Absolute Nucleated RBC (0.0-0.012) X10*3/uL Nucleated RBC % (auto) (0.0-0.2) /100WBC Sodium (135-145) mmol/L Potassium (3.3-5.1) mmol/L Chloride (96-108) mmol/L Carbon Dioxide (22-29) mmol/L Anion Gap (12-20) BUN (9-16) mg/dL Creatinine (0.5-1.4) mg/dL Estim Creat Clear Calc Estimated GFR Random Glucose (60-115) mg/dL Calcium (8.4-10.2) mg/dL Total Bilirubin (0.0-1.0) mg/dL Direct Bilirubin (0.0-0.5) mg/dL AST (5-31) U/L ALT (0-31) U/L Alkaline Phosphatase (39-117) U/L Troponin I High Sens < 3.5 (<3.5-17.0) ng/L B-Natriuretic Peptide (<100) pg/mL Total Protein (6.5-8.0) g/dL Albumin (3.5-5.0) g/dL TSH (0.32-4.0) uIU/mL Beta HCG, Quant mIU/mL ECG Data ECG interpretation date: 09/26/22 ECG interpretation time: 16:11 Prior ECG tracings: available for review Interpretation: NSR 69. Normal axis. Normal intervals. No change from prior EKG dated 07/22/2018 Discharge Plan Discharge Clinical Impression: Palpitations Chest pain Qualifiers: Chest pain type: unspecified Qualified Code(s): R07.9 - Chest pain, unspecified Patient Disposition: Home, Self-Care Instructions: Chest Pain (ED), Heart Palpitations (ED) Additional Instructions: Call your primary care doctor tomorrow and request a Holter monitor Prescriptions: No Action omeprazole 20 mg tablet,delayed release (DR/EC) 20 mg PO DAILY Mirena 20 mcg/24 hours (6 yrs) 52 mg intrauterine device 0 insert intrauterine ONCE hydroxyzine HCl 25 mg tablet 25 mg PO QID PRN (Reason: itching) 30 Days Qty: 90 0RF fluoxetine 20 mg capsule 20 mg PO DAILY valacyclovir [Valtrex] 1 gram tablet 1,000 mg PO DAILY Qty: 7 0RF ibuprofen 800 mg tablet 800 mg PO Q8H Qty: 90 2RF gabapentin 300 mg capsule 300 mg PO Q8H Qty: 90 3RF Rx Instructions: she should increase to a third dose daily Referrals: Lilia Pickett TILE LAYER HELPER [Primary Care Provider] - 1 day (Request Holter monitor and follow-up) Stand Alone Forms: Work/School Release Interventions: ED Discharge Assessment Last Done: 09/26/22 17:16 Discharge Date/Time: 09/26/22 17:16
[2022-09-26 16:45] VITALS: BP 117/86; PULSE 59; RESP 18; TEMP 36.7; O2SAT 100
== END 2022-09-26 17:16 | disposition home or self-care (01) ==
PROVIDERS: Emergency Medicine; Emergency Provider Emergency Medicine; PCP Hospitalist
DX: I49.9 Cardiac arrhythmia, unspecified (principal); R42 Dizziness and giddiness; R00.2 Palpitations; R06.02 Shortness of breath; R07.89 Other chest pain; F17.210 Nicotine dependence, cigarettes, uncomplicated; Z71.6 Tobacco abuse counseling; Z79.899 Other long term (current) drug therapy
CPT/HCPCS: 36415; 80048; 80076; 83880; 84443; 84484; 84702; 85025; 93005; 99283; 99284

== ENCOUNTER 2023-02-15 09:58 | Outpatient (REF) | payer OTHER, SELFPAY ==
[2023-02-15 16:04] LABS: CT PCR NOT DETECTED (Not Detect.); NG PCR NOT DETECTED (Not Detect.)
[2023-02-16 10:12] LABS: BV Int Neg Control Negative (Negative); BV Int Pos Control Positive (Positive)
== END 2023-02-15 09:59 | disposition home or self-care (01) ==
LOC: HO.LNP 09:58
PROVIDERS: PCP Hospitalist; Visit Provider Advanced Practice Midwife
DX: Z01.419 Encounter for gynecological examination (general) (routine) without abnormal findings (principal); Z98.890 Other specified postprocedural states; Z97.5 Presence of (intrauterine) contraceptive device; Z20.2 Contact with and (suspected) exposure to infections with a predominantly sexual mode of transmission
CPT/HCPCS: 0353U; 87480; 87510; 87660

== ENCOUNTER 2023-05-16 13:34 | Outpatient (REF) | payer OTHER, SELFPAY ==
[2023-05-17 12:10] LABS: Appearance Urine Turbid; Color Urine Yellow; Glucose Urine UA Negative (Negative); Leukocyte Esterase Urine Negative (Negative); Nitrite Urine Negative (Negative); Urine Blood Negative (Negative); Urine Ketones Negative (Negative); Urine Protein Negative (Neg-Trace)
[2023-05-17 12:57] LABS: Influenza A PCR NEGATIVE (Negative); Influenza B PCR NEGATIVE (Negative); Resp Syncy Virus RNA Qual PCR NEGATIVE (Negative); SARS COV2 PCR INHOUSE NEGATIVE (Negative)
== END 2023-05-16 13:35 | disposition home or self-care (01) ==
LOC: HO.LNP 13:34
PROVIDERS: Visit Provider Nurse Practitioner Family
DX: Z20.822 Contact with and (suspected) exposure to COVID-19 (principal); R09.89 Other specified symptoms and signs involving the circulatory and respiratory systems; R42 Dizziness and giddiness
CPT/HCPCS: 0241U; 81003

== ENCOUNTER → 2023-11-15 11:32 | Outpatient (BNVA) | payer OTHER, SELFPAY | PROVIDERS: PCP Hospitalist; Visit Provider Physician Assistant | DX: S16.1XXA Strain of muscle, fascia and tendon at neck level, initial encounter (principal); X50.0XXA Overexertion from strenuous movement or load, initial encounter | CPT/HCPCS: 99203 ==

== ENCOUNTER → 2023-11-21 10:33 | Outpatient (BNVA) | payer OTHER, SELFPAY | PROVIDERS: PCP Hospitalist; Visit Provider Physician Assistant | DX: S16.1XXD Strain of muscle, fascia and tendon at neck level, subsequent encounter (principal); X50.0XXD Overexertion from strenuous movement or load, subsequent encounter | CPT/HCPCS: 99213 ==

== ENCOUNTER → 2023-12-10 15:04 | Outpatient (BNVA) | payer OTHER, SELFPAY | PROVIDERS: PCP Hospitalist; Visit Provider Physician Assistant | DX: S16.1XXD Strain of muscle, fascia and tendon at neck level, subsequent encounter (principal); X50.0XXD Overexertion from strenuous movement or load, subsequent encounter | CPT/HCPCS: 99213 ==

== ENCOUNTER 2024-07-17 10:53 | Outpatient (AMB) | payer OTHER, SELFPAY ==
--- NOTE | 2024-07-17 11:09 | MHC.PC.OV ---
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 Required: No Allergies No Known Allergies Allergy (Verified 07/17/24 12:11) Tobacco use date assessed: 07/17/24 Dental Screening Dental Screen Date: 07/17/24 Did you have a dental visit in the last 12 months?: Yes Did you have a dental problem in the last 6 months where you did not have access to dental care?: No Was dental information given to patient?: Patient has dentist HPI HPI Comments History of Present Illness Details The patien tis a 43 year old female with a past medical history of anxiety, depression presenting to [facility] care and for physical exam The patient reports an increase in anxiety and depressive symptoms. She has in the past few months been experiencing panic attacks. Has happened frequently at work. She is on the wait list for a therapist. Says she remotely was on medications never for an extended amount of time. She also notes increasing cramping and pain in the bilateral hands, small joints and in the feet. She has been noticing some burning tingling sensation in the feet. 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 Reports mammo UTD ROS see HPI PHYSICAL EXAM: GENERAL: Alert and oriented x 3. NAD EYES: EOMI. Anicteric. HENT: Moist mucous membranes. No scleral icterus. No cervical lymphadenopathy. LUNGS: Clear to auscultation bilaterally. CARDIOVASCULAR: Regular rate and rhythm. No murmur. No JVD. ABDOMEN: Soft, non-tender +bs EXTREMITIES: No edema. Non-tender. SKIN: No rashes or lesions. Warm. NEUROLOGIC: No focal neurological deficits. CN II-XII grossly intact PSYCHIATRIC: Cooperative. Appropriate mood and affect [facility] Medical History Depression PTSD (post-traumatic stress disorder) Surgical History History of surgery Ectopic History of miscarriage Family History Father No problems noted. Mother Hypertension Maternal Grandmother Diabetes Breast cancer Maternal Grandfather Diabetes Maternal Uncle Diabetes Social History Housing: House Housing Other:: complex Patient Tobacco Use Status: Current someday Tobacco user Cigarettes Per Day: 4 e-Cigarette/Vaping Use: Never Used Second Hand Smoke Exposure: No service: No Current occupational status: employed Current occupational exposures/hazards: No Cognitive needs: No Hearing needs: No Vision needs: No Female Reproductive History Menstrual Age of Menarche: 11 Questionnaire PHQ-9 Over the last 2 weeks, how often have you been bothered by any of the following problems? 1. Little interest or pleasure in doing things: several days 2. Feeling down, depressed, or hopeless: several days 3. Trouble falling or staying asleep, or sleeping too much: several days 4. Feeling tired or having little energy: several days 5. Poor appetite or overeating: several days 6. Feeling bad about yourself - or that you are a failure or have let yourself or your family down: several days 7. Trouble concentrating on things, such as reading the newspaper or watching television: not at all 8. Moving or speaking so slowly that other people could have noticed. Or the opposite - being so fidgety or restless that you have been moving around a lot more than usual: not at all 9. Thoughts that you would be better off or of hurting yourself in some way: not at all Total score: 6 Depression Screening Interpretation: Positive Depression Screening Follow-up: New Medication prescribed Depression Screening Done: Yes 94116 - PHQ-9 Billing: Yes Source: Developed by Drs. Rene Cortes, Radha Smith, Braden Sr and colleagues, with an educational stephen from [employer]. Thrive Questionnaire Date Thrive assessed: 07/17/24 I am a: Patient What is your living situation today?: I have a steady place to live Within the past 12 months, did the food you bought not last and you didn't have the money to get more?: Never true Within the past 12 months, did you worry whether your food would run out before you got money to buy more?: Never true Do you have trouble paying for medicines?: No Do you have trouble getting transportation to medical appointments?: No Do you have trouble paying your heating and electricity bill?: No Do you have trouble taking care of your child, family member or friend?: No Do you have trouble with day-to-day activities such as bathing, preparing meals, shopping, managing finances, etc.?: No Are you currently unemployed and looking for a job?: No Are you interested in more education?: No Please select the resources that you would like help with: None Currently or been in a relationship where the following occur: No concerns reported THRIVE Score: 0 AUDIT C Alcohol Use Questionnaire (AUDIT-C) 1. How often do you have a drink containing alcohol?: Never 3. How often do you have six or more drinks on one occasion?: Never Total Score: 0 GERMAN-7 AMB Questionnaire GERMAN-7 Date GERMAN - 7 assessed: 07/17/24 Feeling nervous, anxious, or on edge: 1 = Several days Not being able to stop or control worryin = Several days Worrying too much about different things: 1 = Several days Trouble relaxin = Several days Being so restless that it is hard to sit still: 1 = Several days Becoming easily annoyed or irritable: 1 = Several days Feeling afraid as if something awful might happen: 1 = Several days Total GERMAN-7 score (0-4 normal; 5-9 mild; 10-14 moderate; 15-21 severe): 7 Source: Developed by Drs. Rene Cortes, Radha Smith, Braden Sr and colleagues, with an educational stephen from [employer]. GERMAN-7 Assessment Billing GERMAN-7 Assessment Tool: GERMAN-7 Assessment 69597 Physical exam (Primary Care) Tobacco/Smoking Status: Tobacco use Status Tobacco use date assessed 07/13/21 07/17/24 11:10 Patient Tobacco Use Status Current someday Tobacco 07/17/24 11:10 e-Cigarette/Vaping Use Never Used 07/17/24 11:10 Depression Screening Interpretation: Positive Depression Screening Follow-up: New Medication prescribed Thrive Assessment: Date of Thrive Assessment Date Thrive assessed 11/21/21 07/17/24 11:10 Currently or been in a relationship where the following occur: No concerns reported Assessment and Plan Assessment & Plan (1) Physical exam: Code(s): Z00.00 - Encounter for general adult medical examination without abnormal findings Plan: Preventive measures for age discussed (2) Bilateral foot pain: Code(s): M79.671 - Pain in right foot; M79.672 - Pain in left foot Plan: refer rheumatology. labs ordered (3) Peripheral neuropathy: Code(s): G62.9 - Polyneuropathy, unspecified Qualifiers: Peripheral neuropathy type: polyneuropathy, unspecified Qualified Code(s): G62.9 - Polyneuropathy, unspecified (4) Major depression, recurrent: Code(s): F33.9 - Major depressive disorder, recurrent, unspecified Qualifiers: Active/Remission status: currently active Major depression episode severity: mild Qualified Code(s): F33.0 - Major depressive disorder, recurrent, mild Plan: start zoloft. Discussed potential SE, slower onset of action. Lorazepam for panic attack. Discussed potential side effects. visit pending Orders: Orders Complete Blood Count Auto Diff Today G62.9 - Polyneuropathy, unspecified, M79.641 - Pain in right hand, M79.642 - Pain in left hand, M79.671 - Pain in right foot, M79.672 - Pain in left foot, Z00.00 - Encounter for general adult medical examination without abnormal findings, Z13.220 - Encounter for screening for lipoid disorders Lipid Panel Today G62.9 - Polyneuropathy, unspecified, M79.641 - Pain in right hand, M79.642 - Pain in left hand, M79.671 - Pain in right foot, M79.672 - Pain in left foot, Z00.00 - Encounter for general adult medical examination without abnormal findings, Z13.220 - Encounter for screening for lipoid disorders IRON PROFILE Today G62.9 - Polyneuropathy, unspecified, M79.641 - Pain in right hand, M79.642 - Pain in left hand, M79.671 - Pain in right foot, M79.672 - Pain in left foot, Z00.00 - Encounter for general adult medical examination without abnormal findings, Z13.220 - Encounter for screening for lipoid disorders Hemoglobin A1c Today G62.9 - Polyneuropathy, unspecified, M79.641 - Pain in right hand, M79.642 - Pain in left hand, M79.671 - Pain in right foot, M79.672 - Pain in left foot, Z00.00 - Encounter for general adult medical examination without abnormal findings, Z13.220 - Encounter for screening for lipoid disorders Rheumatoid Factor Today G62.9 - Polyneuropathy, unspecified, M79.641 - Pain in right hand, M79.642 - Pain in left hand, M79.671 - Pain in right foot, M79.672 - Pain in left foot Cyclic Citrullinated Peptide Today G62.9 - Polyneuropathy, unspecified, M79.641 - Pain in right hand, M79.642 - Pain in left hand, M79.671 - Pain in right foot, M79.672 - Pain in left foot Comprehensive Met. Panel Today G62.9 - Polyneuropathy, unspecified, M79.641 - Pain in right hand, M79.642 - Pain in left hand, M79.671 - Pain in right foot, M79.672 - Pain in left foot, Z00.00 - Encounter for general adult medical examination without abnormal findings, Z13.220 - Encounter for screening for lipoid disorders TSH reflex Free T4 Today G62.9 - Polyneuropathy, unspecified, M79.641 - Pain in right hand, M79.642 - Pain in left hand, M79.671 - Pain in right foot, M79.672 - Pain in left foot, Z00.00 - Encounter for general adult medical examination without abnormal findings, Z13.220 - Encounter for screening for lipoid disorders Vitamin B12 and Folate Today G62.9 - Polyneuropathy, unspecified, M79.641 - Pain in right hand, M79.642 - Pain in left hand, M79.671 - Pain in right foot, M79.672 - Pain in left foot, Z00.00 - Encounter for general adult medical examination without abnormal findings, Z13.220 - Encounter for screening for lipoid disorders Erythrocyte Sedimentation Rate Today G62.9 - Polyneuropathy, unspecified, M79.641 - Pain in right hand, M79.642 - Pain in left hand, M79.671 - Pain in right foot, M79.672 - Pain in left foot Referrals Rheumatology Referral M79.641 - Pain in right hand, M79.642 - Pain in left hand, M79.671 - Pain in right foot, M79.672 - Pain in left foot Medications: New sertraline (Zoloft) Take 1/2 tab oral once daily for one week then increase to one tablet oral daily 25 mg PO DAILY 90 days 90 tabs 3RF lorazepam 0.5 mg PO BID PRN 60 tabs 3RF anxiety diclofenac sodium 1% (Arthritis Pain (diclofenac)) apply to single elbow, wrist or hand; for hand includes palm/fingers/back of hand 2 grams topical QID 100 grams 3RF Discontinued azithromycin (Zithromax Z-Adelfo) Discontinued Reason: Doctor's Order For 250 mg dose pack: take 500 mg today (day 1), then 250 mg for 4 days (days 2-5) PO 6 tabs 0RF ondansetron Discontinued Reason: Doctor's Order 4 mg PO Q6-8H PRN 20 tabs 0RF nausea and vomiting cetirizine Discontinued Reason: Doctor's Order 10 mg PO DAILY PRN 30 tabs 0RF allergy symptoms cyclobenzaprine Discontinued Reason: Doctor's Order 10 mg PO BID PRN 20 tabs 0RF muscle spasm dexamethasone take with food Discontinued Reason: Doctor's Order 4 mg PO TID 6 days 18 tabs 0RF ibuprofen Discontinued Reason: Doctor's Order 800 mg PO TID 60 tabs 0RF pain swelling Coding Level of Care Code Est Pt Prev Care 40-64y(43232) Diagnoses Physical exam Z00.00 Bilateral foot pain M79.671; M79.672 Peripheral polyneuropathy G62.9 Peripheral neuropathy type: polyneuropathy, unspecified Mild episode of recurrent major depressive disorder F33.0 Active/Remission status: currently active Major depression episode severity: mild Additional Codes GERMAN-7 Assessment Billing - GERMAN-7 Assessment Tool: GERMAN-7 Assessment [id number] ([id number])
[2024-07-17 12:07] VITALS: BP 106/64; PULSE 81; RESP 13; O2SAT 96
== END 2024-07-17 11:55 | disposition home or self-care (01) ==
PROVIDERS: PCP Hospitalist; Visit Provider Internal Medicine
DX: Z00.00 Encounter for general adult medical examination without abnormal findings (principal); M79.671 Pain in right foot; F33.0 Major depressive disorder, recurrent, mild; M79.672 Pain in left foot; G62.9 Polyneuropathy, unspecified
CPT/HCPCS: 96127; 99396

== ENCOUNTER 2024-07-17 11:48 | Outpatient (REF) | payer OTHER, SELFPAY ==
[2024-07-17 14:51] LABS: MANUAL DIFF FLAG NO
[2024-07-17 14:53] LABS: Basophils Percent Auto 0.5 % (0-2); Eosinophils Absolute Auto 0.1 X10*3/uL (0.0-0.4); Eosinophils Percent Auto 1.5 % (0-4); Hematocrit 38.9 % (37.0-47.0); Hemoglobin 13.2 g/dl (12.0-16.0); Imm Gran Abs Auto 0.02 X10*3/uL (0.00-0.03); Imm Gran Pct Auto 0.3 % (0.0-0.4); Lymphocytes Absolute Auto 1.9 X10*3/uL (1.2-4.9); Lymphocytes Percent Auto 28.8 % (20-40); Mean Corpuscular HGB Conc 33.9 g/dl (31.0-35.0); Mean Corpuscular Hemoglobin 30.3 pg (27.0-33.0); Mean Corpuscular Volume 89.2 fL (80.0-98.0); Mean Platelet Volume 10.4 fL (9.4-12.3); Monocytes Absolute Auto 0.5 X10*3/uL (0.1-1.2); Monocytes Percent Auto 7.3 % (2-11); Neutrophils Percent Auto 61.6 % (45-73); Platelet Count 299 X10*3/uL (160-400); Red Blood Count 4.36 X10*6/uL (4.20-5.50); Red Cell Distribution Width 13.3 % (11.0-16.0); White Blood Count 6.5 X10*3/uL (4.8-10.8)
[2024-07-17 15:12] LABS: Rheumatoid Factor < 13.0 IU/mL (<15.0)
[2024-07-17 15:21] LABS: Estimated Average Glucose 94 mg/dL; Hemoglobin A1c % 4.9 % (<6.0)
[2024-07-17 15:27] LABS: Alanine Aminotransferase 9 U/L (0-31); Albumin Level 4.2 g/dL (3.5-5.0); Alkaline Phosphatase 54 U/L (39-117); Anion Gap 10 (12-20); Aspartate Amino Transferase 13 U/L (5-31); Bilirubin Total 0.5 mg/dL (0.0-1.0); Blood Urea Nitrogen 11 mg/dL (9-16); Calcium 9.6 mg/dL (8.4-10.2); Carbon Dioxide 24 mmol/L (22-29); Chloride 109 mmol/L (96-108); Cholesterol 170 mg/dL (<200); Estimated Glomerular Filt Rate > 60; Glucose Random 83 mg/dL (60-115); HDL Cholesterol 49 mg/dL (>40); Iron 65 mcg/dL (30-160); LDL Cholesterol Calculated 112 mg/dL (<100); Percent Iron Saturation 27 % (15-50); Potassium 4.1 mmol/L (3.3-5.1); Sodium 139 mmol/L (135-145); Total Iron Binding Capacity 237 mcg/dL (228-428); Total Protein 7.2 g/dL (6.5-8.0); Triglycerides 48 mg/dL (<150); Unsaturated Iron Binding 172 ug/dL
[2024-07-17 15:35] LABS: TSH reflex Free T4 0.67 uIU/mL (0.32-4.0)
[2024-07-17 15:41] LABS: Erythrocyte Sedimentation Rate 2 MM/HR (0-20)
[2024-07-17 15:47] LABS: Folate 11.7 ng/mL (> or = 4.0); Vitamin B12 165 pg/mL (200-900)
[2024-07-22 10:53] LABS: Cyclic Citrullinated Peptide <16 UNITS
== END 2024-07-17 11:49 | disposition home or self-care (01) ==
LOC: HO.WFDLDS 11:48
PROVIDERS: Visit Provider Internal Medicine
DX: Z00.00 Encounter for general adult medical examination without abnormal findings (principal); Z13.220 Encounter for screening for lipoid disorders; Z13.6 Encounter for screening for cardiovascular disorders; Z13.1 Encounter for screening for diabetes mellitus; G62.9 Polyneuropathy, unspecified; M79.641 Pain in right hand; M79.642 Pain in left hand; M79.671 Pain in right foot; M79.672 Pain in left foot
CPT/HCPCS: 36415; 80053; 80061; 82607; 82746; 83036; 83540; 84443; 85025; 85652; 86200; 86431

== ENCOUNTER 2024-08-04 09:58 | Outpatient (REF) | payer OTHER, SELFPAY ==
[2024-08-05 04:55] LABS: CT PCR NOT DETECTED (Not Detect.); NG PCR NOT DETECTED (Not Detect.)
[2024-08-05 12:55] LABS: Bacterial Vaginosis PCR POSITIVE (Negative); Candida Group PCR DETECTED (Not Detect); Candida glab krusei PCR NOT DETECTED (Not Detect); Trichomonas vaginalis PCR NOT DETECTED (Not Detect)
== END 2024-08-04 09:59 | disposition home or self-care (01) ==
LOC: HO.LAB 09:58
PROVIDERS: PCP Hospitalist; Visit Provider Advanced Practice Midwife
DX: Z01.419 Encounter for gynecological examination (general) (routine) without abnormal findings (principal); N89.8 Other specified noninflammatory disorders of vagina; Z20.2 Contact with and (suspected) exposure to infections with a predominantly sexual mode of transmission
CPT/HCPCS: 0352U; 36415; 87491; 87591; 87625; 88175

== ENCOUNTER 2024-08-04 09:58 | Outpatient (AMB) | payer OTHER, SELFPAY ==
--- NOTE | 2024-08-04 10:23 | MHC.OFFVIS ---
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 Diagnostic Required: No Information Interpreted: clinical only Substance Addiction Coordinator: Substance Addiction Coordinator Present Allergies No Known Allergies Allergy (Verified 08/04/24 10:32) Medication List - Last Reconciled 08/04/24 by Talia Montes CNM diclofenac sodium 1% (Arthritis Pain (diclofenac)) 2 grams topical QID levonorgestrel (Mirena) 0 inserts intrauterine ONCE lorazepam 0.5 mg PO BID PRN sertraline (Zoloft) 25 mg PO DAILY 90 days Is last menstrual period known: Yes Last menstrual period: 07/28/24 HPI HPI 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 She has a history of a LEEP many years ago perhaps about 7 years ago she does not remember her Paps have been normal since her last 1 was in 2020. She is open to STI testing. So she does not feel she needs blood work She has a Mirena IU S that was inserted 07/20/2021 per the records by Dr. Bowden soon after an ectopic and removal of her tube. 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 She has an appointment with her primary care provider in 4 weeks to check on prescription for lorazepam that she just got refilled. She also wants her breasts checked and does not remember when she had her last mammogram though thought it was last year sometime. She also would like a refill on her Valtrex which she takes just for couple of days whenever she feels she is about to get an outbreak and it helps right away she gets maybe 3 outbreaks a year. [facility] Medical History Depression PTSD (post-traumatic stress disorder) Surgical History History of surgery Ectopic History of miscarriage Family History Father No problems noted. Mother Hypertension Maternal Grandmother Diabetes Breast cancer Maternal Grandfather Diabetes Maternal Uncle Diabetes Social History Housing: House Housing Other:: complex Patient Tobacco Use Status: Current someday Tobacco user Cigarettes Per Day: 4 e-Cigarette/Vaping Use: Never Used Second Hand Smoke Exposure: No service: No Current occupational status: employed Current occupational exposures/hazards: No Cognitive needs: No Hearing needs: No Vision needs: No Female Reproductive History Menstrual Age of Menarche: 11 Duration of menses: <3 days Date of last menstrual period: 07/28/24 control method: progestin IUCD Total pregnancies: 5 Full term: 2 Date of last pap smear: 06/14/21 (negative) History of abnormal pap smear: Yes (2008,2010,ASCUS) Date of Mammogram: 08/17/21 (negative) History of abnormal mammogram: No Physical Exam Vital Signs: Last Vital Signs BP 118/70 08/04/24 10:32 BMI result Body Mass Index 21.6 Const General: healthy appearing, comfortable, no acute distress, well developed and alert Nutritional Appearance: average body habitus Orientation/consciousness: patient oriented x3 Limitations: no limitations HEENT Head: Yes normocephalic Neck Neck: Yes normal visual inspection Chest Other: Normal breast exam with no masses tenderness puckering or dimpling or peau d'orange. Chest palpation & inspection: normal inspection of the chest Breast/axilla inspection: normal inspection of the breasts and normal inspection of the axillae Breast/axilla palpation: normal palpation of the breasts and normal palpation of the axillae Resp Effort & Inspection: normal respiratory effort GI Inspection: Yes normal to inspection, No Abdominal wall edema and No distended Palpation (GI): Soft to palpation and nontender Other: Completely normal external exam vagina pink premenopausal changes evident no excessive mucus or discharge Mirena strings extending from perfectly pink status post LEEP os of the cervix strings are about 2.5 cm long cervix is mobile nontender uterus is midposition mobile nontender adnexa nontender good tone with Kegel no tenderness palpated at bladder specifically. General: Yes bladder normal to palpation External Female Exam: normal external appearance and normal appearance of the urethra Speculum Exam - Vagina: normal appearance of the vagina, normal palpation and normal vaginal discharge Speculum Exam - Cervix: normal appearance of the cervix, normal palpation and nontender Bimanual exam- vagina & uterus: normal bimanual exam, normal palpation, uterine size normal, bladder normal to palpation, consistency normal, normal palpation, uterine mobility normal, uterine shape normal, No Cervical tenderness present, non-tender and no cervical motion tenderness Bimanual Exam- Adnexa, other: normal adnexae, no masses, normal and No adnexal tenderness Neuro General: patient oriented x3 Results Reviewed Results Reviewed: Name: Danae Carrasquillo Age/Sex: 40/F Attending: Talia Montes CNM : 1980 Submitted by: Talia Montes CNM Copies to: MR #: [id number] Status: DEP REF Collected: 06/13/21 Location: .LAB Received: 06/14/21 Interpretation Satisfactory for evaluation. Mild inflammation. Negative for intraepithelial lesion or malignancy. HPV mRNA E6/E7: NOT DETECTED This assay detects E6/E7 viral messenger RNA (mRNA) from 14 high-risk HPV types (16, 18, 31, 33, 35, 39, 45, 51, 52, 56, 58, 59, 66, 68) HPV testing performed by [facility], [place], [place]. See reference laboratory portion of the EMR for entire report. Clinical Information LMP: 05/22/21 Previous PAP test: 2017, wnl Other history: Abnormal, unsure date Material Received ThinPrep cervical Electronically Signed By: JORGE Strong (ASCP) 06/19/21 0922 The Pap Test is a screening procedure with the inherent possibility of both false negative and false positive results. Results should be interpreted in the context of historic and current clinical findings. Reliability of the Pap Test is enhanced by performing the test on a regular repetitive basis. Patient: Danae Carrasquillo Page 1 of 1 Assessment & Plan Assessment & Plan (1) Screen for sexually transmitted diseases: Code(s): Z11.3 - Encounter for screening for infections with a predominantly sexual mode of transmission Category: Medical (2) Encounter for routine checking of intrauterine contraceptive device (IUD): Comment: Mirena inserted 07/20/21.; reviewed the current recommendations for length of use and the variables involved. Code(s): Z30.431 - Encounter for routine checking of intrauterine contraceptive device Category: Medical (3) Cervical cancer screening: Comment: hx abnormal w LEEp years ago, normal since;06/13/21- pap= neg w neg hpv. Code(s): Z12.4 - Encounter for screening for malignant neoplasm of cervix Category: Medical (4) History of loop electrosurgical excision procedure (LEEP): Comment: Last negative Pap 2020, Pap done 08/04/2024 Code(s): Z98.890 - Other specified postprocedural states Category: Surgical (5) Well woman exam with routine gynecological exam: Code(s): Z01.419 - Encounter for gynecological examination (general) (routine) without abnormal findings Category: Medical (6) Recurrent HSV (herpes simplex virus): Comment: Refill sent of her Valtrex that she takes when she has a rare outbreak Code(s): B00.9 - Herpesviral infection, unspecified Category: Medical (7) Breast cancer screening: Comment: mammogram ordered Code(s): Z12.39 - Encounter for other screening for malignant neoplasm of breast Category: Medical (8) Concern about urinary tract disease without diagnosis: Comment: No consistent symptoms of UTI today. Discussed the challenges of delaying voiding and then difficulty with voiding when bladders over full patient will work on this if she still has concerns she will review with her primary. She has good tone with her Code(s): Z71.1 - Person with feared health complaint in whom no diagnosis is made Category: Medical Plan -----Discussed in this visit the following: healthy balanced diet, regular and consistent exercise, getting recommended health screens, doing the best she can for her particular health concerns, kegel exercises, pap smear screening and followup recommendations, mammography screening and SBE, normal changes in cycles in her life stage--- .Reviewed how the Mirena works and its affect on menstrual cycles and menses and the other common changes that women sometimes notice on mood weight another subtle cyclic changes. Reviewed that 1 of the reasons we insert the Mirena at the beginning of the menses is because of the typical physiologic changes that happen with menses that allow for the cervix to be slightly softened and open a very tiny bit which allow for more easy insertion of the Mirena. 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 Also discussed the initial recommendations to use the Mirena IUD for contraception for up to 5 years. Some recent studies are indicating that it can be used for longer and there are current recommendations saying it can be left for longer period of time when used for contraception, up to 8 years and it can be used for 5 years when it is being used to help control abnormal bleeding. However, many women, whose periods went away for the 1st few years of having the Mirena, have reported that around 4-1/2-5 years into its use, they have noticed return of full menses, and return of ovulatory signs and symptoms midcycle. This varies from women to woman. In addition women who have had it to help control bleeding, have had amenorrhea for very many years and sometimes have opted to leave it in longer if they are still not bleeding, when they are not concerned about contraception. I recommend the she pay attention to how the effects are acting on her own body, and cycles, and always take care to be aware of this. And if she is using it for contraception, and the consequences of conceiving would be great for her, she would be rao to pay attention to this, and not depend on it, if she has a return to fertility. -- She is very much concerned that she does not have an unplanned unintended at this stage of her life especially since her last was an ectopic and she had removal of her tube, therefore she thinks she will be inclined to want to replaced at 5 years.. Discussed that it is easier to replace with he period. if she is still getting periods then. And if she desires replacement, she should return for replacement at the appropriate time. I reordered the Valtrex for her she finds that taking it for 2 days she suspects an outbreak is coming does the trick for her.. I have ordered her mammogram for her. She is going to work on trying to allow herself a quick time to void when she is at work so that she does not over fill her bladder and have the difficulty voiding when she finally gets to go with an over full bladder if she has any symptoms of UTI she review with her primary care provider I did not see any evidence in her symptomology or exam today that made suspect this was in fact the case. Orders: Orders Bacterial Vaginosis Panel Today N89.8 - Other specified noninflammatory disorders of vagina PAP rfx HPV E6/E7 and 16 18/45 Today Z01.419 - Encounter for gynecological examination (general) (routine) without abnormal findings MM tomosynthesis screening BI Today B00.9 - Herpesviral infection, unspecified, Z01.419 - Encounter for gynecological examination (general) (routine) without abnormal findings, Z12.31 - Encounter for screening mammogram for malignant neoplasm of breast, Z12.39 - Encounter for other screening for malignant neoplasm of breast, Z71.1 - Person with feared health complaint in whom no diagnosis is made CT NG by PCR Today N89.8 - Other specified noninflammatory disorders of vagina, Z20.2 - Contact with and (suspected) exposure to infections with a predominantly sexual mode of transmission Medications: New valacyclovir Take daily for 3-5 days for occasional outbreaks. 1,000 mg PO DAILY 30 tabs 1RF Coding Level of Care Code Est Pt Prev Care 40-64y(67325) Diagnoses Screen for sexually transmitted diseases Z11.3 Encounter for routine checking of intrauterine contraceptive device (IUD) Z30.431 Cervical cancer screening Z12.4 History of loop electrosurgical excision procedure (LEEP) Z98.890 Well woman exam with routine gynecological exam Z01.419 Recurrent HSV (herpes simplex virus) B00.9 Breast cancer screening Z12.39 Concern about urinary tract disease without diagnosis Z71.1
[2024-08-04 10:32] VITALS: BP 118/70; BMI 21.6
== END 2024-08-04 11:09 | disposition home or self-care (01) ==
PROVIDERS: PCP Hospitalist; Visit Provider Advanced Practice Midwife
DX: Z01.419 Encounter for gynecological examination (general) (routine) without abnormal findings (principal); B00.9 Herpesviral infection, unspecified; Z98.890 Other specified postprocedural states
CPT/HCPCS: 99396

== ENCOUNTER 2024-09-03 15:33 | Outpatient (REF) | payer OTHER, SELFPAY ==
--- NOTE | ~2024-09-03 | MM_ITS ---
EXAMINATION: MM SCREENING DIGITAL BREAST TOMOSYNTHESIS, BILATERAL CLINICAL INFORMATION: Screening. Asymptomatic. COMPARISON: Mammography: Comparison is made with available priors TECHNIQUE: Digital breast mammography with tomosynthesis is performed in both the craniocaudal and mediolateral oblique views along with computer-aided detection (CAD). FINDINGS: The breasts are heterogeneously dense, which may obscure small masses (ACR BI-RADS breast composition Category c). There are no significant masses, abnormal calcifications, or other abnormalities. MM/MM tomosynthesis screening BI IMPRESSION: No mammographic evidence of malignancy. ASSESSMENT: BI-RADS BI-RADS 1 - Negative RECOMMENDATION: Routine annual mammography screening. 1 year F/U This examination should not preclude the clinical evaluation of a suspicious palpable abnormality. This patient's information was entered into a reminder system with a target due date for their next mammogram. Electronically signed by: Alaina Laguna DO 09/15/2024 01:30 PM EDT
== END 2024-09-03 15:34 | disposition home or self-care (01) ==
LOC: HO.MAMMO 15:33
PROVIDERS: PCP Advanced Practice Midwife; Visit Provider Advanced Practice Midwife
DX: Z12.31 Encounter for screening mammogram for malignant neoplasm of breast (principal)
CPT/HCPCS: 77063; 77067

== ENCOUNTER → 2024-09-03 15:45 | Outpatient (BNV) | payer OTHER, SELFPAY | PROVIDERS: PCP Advanced Practice Midwife; Visit Provider Internal Medicine | DX: Z12.31 Encounter for screening mammogram for malignant neoplasm of breast (principal) | CPT/HCPCS: 77063; 77067 ==

== ENCOUNTER 2024-09-18 12:44 | Outpatient (AMB) | payer OTHER, SELFPAY ==
--- NOTE | 2024-09-18 12:50 | MHC.OFFVIS ---
Vital Signs 09/18/24 12:54 Height 5 ft 8 in Weight 147 lb 0.773 oz BMI 22.4 BP 90/62 Blood Pressure Location Rt brachial Position Sitting Pulse 71 Pulse Source Pulse Oximeter Pulse Oximetry (%) 96 Oxygen Delivery Method Room Air Intake Visit Reasons: bl hand pain/Lm Intake Note: Patient presents for bilateral hand pain. Allergies No Known Allergies Allergy (Verified 09/18/24 12:53) Medication List - Last Reconciled 09/18/24 by Uma Peraza MD celecoxib (Celebrex) 200 mg PO BID diclofenac sodium 1% (Arthritis Pain (diclofenac)) 2 grams topical QID fluconazole 150 mg PO ONCE 1 day levonorgestrel (Mirena) 0 inserts intrauterine ONCE lorazepam 0.5 mg PO BID PRN metronidazole 0.75%(37.5mg/5gram) 1 appful vaginal BEDTIME 5 days sertraline (Zoloft) 25 mg PO DAILY 90 days valacyclovir 1,000 mg PO DAILY HPI Comments Details: Patient is a 43-year-old female with major recurrent depression who presents for evaluation of polyarthralgias. Patient states that for the past 4 years she has been having bilateral hand pain. Pain is associated with stiffness that lasts all day. Occasionally she would have swelling to her fingers. New line also complains of numbness tingling and a burning sensation involving bilateral plantar surface of the feet. Worse at the end of the day. 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 Denies rashes, photosensitivity, alopecia, oral/nasal ulcers, sicca symptoms, lymphadenopathy, chest pain/shortness of breath, inflammatory type back pain, foamy urine, lower extremity edema, muscle weakness, Raynaud's Also denies history of seizure, CVA, psychosis, history of kidney problems, history of cytopenias, history of VTE including PE or DVTs Family history is significant for grand mother with osteoarthritis [facility] Medical History (Updated 09/18/24 @ 13:44 by Uma Peraza MD) Osteoarthritis of hands, bilateral Tarsal tunnel syndrome of both lower extremities Depression PTSD (post-traumatic stress disorder) Surgical History History of surgery Ectopic History of miscarriage Family History Father No problems noted. Mother Hypertension Maternal Grandmother Diabetes Breast cancer Maternal Grandfather Diabetes Maternal Uncle Diabetes Social History (Updated 09/18/24 @ 12:54 by Xena Gould [facility]) Housing: House Housing Other:: complex Patient Tobacco Use Status: Former Tobacco user Cigarettes Per Day: 4 e-Cigarette/Vaping Use: Never Used Second Hand Smoke Exposure: No service: No Current occupational status: employed Current occupational exposures/hazards: No Cognitive needs: No Hearing needs: No Vision needs: No Female Reproductive History Menstrual Age of Menarche: 11 Review of Systems Const Details: Review of Systems Constitutional: Denies fever, chills, weight loss ENT: Denies vision changes, eye pain or eye redness, dental caries, dry mouth GI: Denies nausea, vomiting, diarrhea, abdominal pain, change in BM Pulm: Denies SOB, AGUILAR, hemoptysis, wheezing Cards: Denies chest pain, palpitations Skin: Denies Raynaud's, rash, nail changes, photosensitivity, BUSINESS DEVELOPMENT SPECIALIST: Denies headaches, weakness, paresthesias, recurrent falls MSK: as per HPI All other systems reviewed and are unremarkable except noted above Physical Exam Vital Signs: BMI result Body Mass Index 22.4 Physical Examination CONSTITUITIONAL Patient alert and cooperative. Well appearing and in no apparent painful distress HEENT Conjunctiva and sclera clear. ?Pupils equal round and reactive to light. ?No lymphadenopathy. ?Normal dentition. No oral or nasal ulcers noted. No evidence of discoid rash to the hilario of ears CHEST/RESPIRATORY SYSTEM Normal respiratory effort and able to speak in complete sentences. ?Clear to auscultation bilaterally. ?No crackles, rales, rhonchi, wheezes heard. CARDIAC SYSTEM Regular rate and rhythm. ?S1 and S2 heard no murmurs. ?Radial pulses intact bilaterally MSK Hands: ?Good performance architect strength bilaterally - 5/5. ?Heberden's and Rosa's nodes noted. Tenderness to palpation of the DIPs and PIPs DIPs bilaterally. Wrists: ?Full range of motion at the wrists without pain. ?No tenderness to palpation or synovitis noted to the wrists. Elbows: Full range of motion without pain. No tenderness, weakness, swelling, increased warmth or erythema. Shoulders: Full range of motion without pain. No tenderness, weakness, swelling, increased warmth or erythema. Hips: Full range of motion without pain. Hip bursa: No tenderness to palpation Knees: ?Full range of motion. ?No tenderness, swelling, increased warmth or erythema.?No effusion or crepitations Ankles: Full range of motion. ?No tenderness, swelling, increased warmth or erythema.? Feet: ?Negative squeeze test. ?No tenderness to palpation or swelling of the MTPs. Tender points:??No tenderness to palpation of the neck, shoulders, chest, elbows, hips, buttocks or knees. SKIN Skin intact without rashes. Results Reviewed Results Reviewed: Laboratory Tests 07/17/24 11:49 WBC 6.5 RBC 4.36 Hgb 13.2 Hct 38.9 ESR 2 Sodium 139 Potassium 4.1 Chloride 109 H Carbon Dioxide 24 BUN 11 Creatinine 0.74 TSH 0.67 Rheumatoid Factor < 13.0 Cycl Citrul Peptide IgG <16 Assessment & Plan Assessment & Plan (1) Osteoarthritis of hands, bilateral: Code(s): M19.041 - Primary osteoarthritis, right hand; M19.042 - Primary osteoarthritis, left hand Category: Medical Qualifiers: Osteoarthritis type: primary Qualified Code(s): M19.041 - Primary osteoarthritis, right hand; M19.042 - Primary osteoarthritis, left hand Plan: #Bilateral Hand OA Patient's history and exam is consistent with hand osteoarthritis. However given her young age I will still check for other underlying autoimmune disease such as spondyloarthritis. I will check x-rays as well. Start patient on Celebrex 200 mg twice a day (2) Tarsal tunnel syndrome of both lower extremities: Code(s): G57.53 - Tarsal tunnel syndrome, bilateral lower limbs Category: Medical Plan: #Tarsal tunnel syndrome Patient with signs and examination consistent with tarsal tunnel syndrome. Also had a positive tourniquet test when I applied pressure over the flexor retinaculum which produced symptoms. Send to physical therapy. Celebrex we will also help with this. Plan I spent 45 minutes reviewing the record and labs, seeing the patient, discussing the treatment plan and documenting in the medical record Orders: Orders XR foot LT min 3V Today M25.50 - Pain in unspecified joint XR foot RT min 3V Today M25.50 - Pain in unspecified joint Comprehensive Met. Panel Today M25.50 - Pain in unspecified joint XR sacroiliac joint min 3V Today M25.50 - Pain in unspecified joint OT Evaluation and Treatment Today M19.041 - Primary osteoarthritis, right hand, M19.042 - Primary osteoarthritis, left hand XR hand wrist RT Today M25.50 - Pain in unspecified joint XR hand wrist LT Today M25.50 - Pain in unspecified joint Complete Blood Count Auto Diff Today M25.50 - Pain in unspecified joint C Reactive Protein Today M25.50 - Pain in unspecified joint Erythrocyte Sedimentation Rate Today M25.50 - Pain in unspecified joint HLA B27 Today M25.50 - Pain in unspecified joint PT Evaluation and Treatment Today G57.53 - Tarsal tunnel syndrome, bilateral lower limbs Medications: New celecoxib (Celebrex) 200 mg PO BID 180 caps 1RF Coding Level of Care Code New Pt Level 4 (49278) Diagnoses Primary osteoarthritis of both hands M19.041; M19.042 Osteoarthritis type: primary Tarsal tunnel syndrome of both lower extremities G57.53
[2024-09-18 12:54] VITALS: BP 90/62; PULSE 71; O2SAT 96; BMI 22.4
== END 2024-09-18 13:30 | disposition home or self-care (01) ==
LOC: HO.RHE 12:45
PROVIDERS: PCP Advanced Practice Midwife; Visit Provider Student in an Organized Health Care Education/Training Program
DX: M19.041 Primary osteoarthritis, right hand (principal); M19.042 Primary osteoarthritis, left hand; G57.53 Tarsal tunnel syndrome, bilateral lower limbs
CPT/HCPCS: 99204

== ENCOUNTER → 2024-09-18 12:44 | Outpatient (BNVA) | payer OTHER, SELFPAY | PROVIDERS: PCP Advanced Practice Midwife; Visit Provider Student in an Organized Health Care Education/Training Program ==

== ENCOUNTER 2024-09-24 12:28 | Outpatient (REF) | payer OTHER, SELFPAY | END 2024-09-24 12:29 | disposition home or self-care (01) | LOC: HO.XRAY 12:28 | PROVIDERS: PCP Internal Medicine; Visit Provider Student in an Organized Health Care Education/Training Program | DX: M53.3 Sacrococcygeal disorders, not elsewhere classified (principal); M79.642 Pain in left hand; M79.641 Pain in right hand; M25.531 Pain in right wrist; M25.532 Pain in left wrist; M79.672 Pain in left foot; M79.671 Pain in right foot | CPT/HCPCS: 72202; 73110; 73130; 73630 ==

== ENCOUNTER → 2024-11-20 13:53 | Outpatient (BNVA) | payer OTHER, SELFPAY | PROVIDERS: PCP Internal Medicine; Visit Provider Internal Medicine | DX: F41.9 Anxiety disorder, unspecified (principal); M79.671 Pain in right foot; M79.672 Pain in left foot | CPT/HCPCS: 99212 ==

== ENCOUNTER → 2024-11-20 13:53 | Outpatient (AMB) | payer OTHER, SELFPAY ==
--- NOTE | 2024-11-20 14:05 | MHC.PC.OV ---
Vital Signs 11/20/24 14:09 Height 5 ft 8 in Weight 152 lb 2 oz BMI 23.1 BP 90/68 Blood Pressure Location Rt brachial Position Sitting Pulse 82 Pulse Source Pulse Oximeter Pulse Oximetry (%) 95 Oxygen Delivery Method Room Air Intake Visit Reasons: Pet Medical Letter Intake Note: Medical letter for pet. Still having pain on bottom of feet. Allergies No Known Allergies Allergy (Verified 11/20/24 14:05) Tobacco use date assessed: 07/17/24 Dental Screening Dental Screen Date: 07/17/24 HPI HPI Comments History of Present Illness Details The patien tis a 43 year old female with a past medical history of anxiety, depression presenting to [facility] care and for physical exam Anxiety/depression: stable. Requesting ongoing therapy animal for housing. The patient reports an increase in anxiety and depressive symptoms. She has in the past few months been experiencing panic attacks. Has happened frequently at work. She is on the wait list for a therapist. Says she remotely was on medications never for an extended amount of time. At last visit She also notes increasing cramping and pain in the bilateral hands, small joints and in the feet. She has been noticing some burning tingling sensation in the feet. She has a family history of rheumatoid and diabetes. She was referred and saw rheumatology. xrays were ordered and performed in early september. results not available. Has been having pain at the base of the 2-3rd toe, cramping neuropathy worse at night. Chronic low back pain. Low b12 now on 1000mcg daily Has gyn physician. Reports mammo UTD ROS see HPI PHYSICAL EXAM: GENERAL: Alert and oriented x 3. NAD EYES: EOMI. Anicteric. HENT: Moist mucous membranes. No scleral icterus. No cervical lymphadenopathy. LUNGS: Clear to auscultation bilaterally. CARDIOVASCULAR: Regular rate and rhythm. No murmur. No JVD. ABDOMEN: Soft, non-tender +bs EXTREMITIES: No edema. Non-tender. SKIN: No rashes or lesions. Warm. NEUROLOGIC: No focal neurological deficits. CN II-XII grossly intact PSYCHIATRIC: Cooperative. Appropriate mood and affect [facility], [facility] Medical History (Updated 09/18/24 @ 13:44 by Uma Peraza MD) Osteoarthritis of hands, bilateral Tarsal tunnel syndrome of both lower extremities Depression PTSD (post-traumatic stress disorder) Surgical History History of surgery Ectopic History of miscarriage Family History Father No problems noted. Mother Hypertension Maternal Grandmother Diabetes Breast cancer Maternal Grandfather Diabetes Maternal Uncle Diabetes Social History (Updated 09/18/24 @ 12:54 by MICHAEL Michael) Housing: House Housing Other:: complex Patient Tobacco Use Status: Former Tobacco user Cigarettes Per Day: 4 e-Cigarette/Vaping Use: Never Used Second Hand Smoke Exposure: No service: No Current occupational status: employed Current occupational exposures/hazards: No Cognitive needs: No Hearing needs: No Vision needs: No Female Reproductive History Menstrual Age of Menarche: 11 Questionnaire Thrive Questionnaire Date Thrive assessed: 07/17/24 I am a: Patient What is your living situation today?: I have a steady place to live Within the past 12 months, did the food you bought not last and you didn't have the money to get more?: Never true Within the past 12 months, did you worry whether your food would run out before you got money to buy more?: Never true Do you have trouble paying for medicines?: No Do you have trouble getting transportation to medical appointments?: No Do you have trouble paying your heating and electricity bill?: No Do you have trouble taking care of your child, family member or friend?: No Do you have trouble with day-to-day activities such as bathing, preparing meals, shopping, managing finances, etc.?: No Are you currently unemployed and looking for a job?: No Are you interested in more education?: No Please select the resources that you would like help with: None Currently or been in a relationship where the following occur: No concerns reported THRIVE Score: 0 AUDIT C Alcohol Use Questionnaire (AUDIT-C) 1. How often do you have a drink containing alcohol?: Never Total Score: 0 GERMAN-7 AMB Questionnaire GERMAN-7 Date GERMAN - 7 assessed: 07/17/24 Feeling nervous, anxious, or on edge: 1 = Several days Not being able to stop or control worryin = Several days Worrying too much about different things: 1 = Several days Trouble relaxin = Several days Being so restless that it is hard to sit still: 1 = Several days Becoming easily annoyed or irritable: 1 = Several days Feeling afraid as if something awful might happen: 1 = Several days Total GERMAN-7 score (0-4 normal; 5-9 mild; 10-14 moderate; 15-21 severe): 7 Source: Developed by Drs. Rene Cortes, Radha Smith, Braden Sr and colleagues, with an educational stephen from [employer]. Physical exam (Primary Care) Vital Signs: Last Vital Signs Pulse 82 11/20/24 14:09 BP 90/68 11/20/24 14:09 Pulse Ox 95 11/20/24 14:09 Oxygen Delivery Method Room Air 11/20/24 14:09 BMI result Body Mass Index 23.1 Tobacco/Smoking Status: Tobacco use Status Tobacco use date assessed 07/17/24 11/20/24 14:08 Patient Tobacco Use Status Former Tobacco user 11/20/24 14:08 e-Cigarette/Vaping Use Never Used 11/20/24 14:08 Thrive Assessment: Date of Thrive Assessment Date Thrive assessed 07/17/24 11/20/24 14:08 Currently or been in a relationship where the following occur: No concerns reported Coding Level of Care Code Est Pt Level 4 (56913) Diagnoses Anxiety F41.9 Bilateral foot pain M79.671; M79.672 Assessment & Plan Assessment & Plan (1) Anxiety: Code(s): F41.9 - Anxiety disorder, unspecified Category: Medical Plan: Letter for therapy animal (2) Bilateral foot pain: Code(s): M79.671 - Pain in right foot; M79.672 - Pain in left foot Category: Medical Plan: Likely multifactorial. Given the pain distribution high likely lumbar radiculopathy. xray SI joints pending. Trial gabapentin Medications: New gabapentin 300 mg PO BID 180 caps 3RF
[2024-11-20 14:09] VITALS: BP 90/68; PULSE 82; O2SAT 95; BMI 23.1
== END ==
PROVIDERS: PCP Internal Medicine; Visit Provider Internal Medicine
DX: F41.9 Anxiety disorder, unspecified (principal); M79.671 Pain in right foot; M79.672 Pain in left foot

== ENCOUNTER 2024-12-18 13:43 | Outpatient (RCR) | payer OTHER, SELFPAY ==
--- NOTE | 2024-11-09 14:55 | MHC.OT.EP ---
[address] [phone] Occupational Therapy Plan of Care Patient Name: Danae Carrasquillo Date of Evaluation: 11/09/24 Diagnosis: B Hand/ joint pain OA Pain Location: R : 5/10 L: 5 /10 Pain Score: Pain Scale Used: Numeric (0 - 10) Aggravating Factors: Alleviating Factors: Assessment: Pt is a 43 yr. old R hand dominant female who reports hand pain and weakness in B hands and thumbs. 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 She presents today w/ WNL ROM of her wrist/ digits and thumbs. She has thenar wasting and atrophy of her thumb along w/ arthritic nodes on B joints in her digits and a (+) grind test. She would benefit from skilled OT service for education on modalities and joint protection as well as increased strength and functional use of her B hands Frequency and Duration: The patient will be seen 1 x a week for 4 weeks Short Term Goals: SEE BELOW [place] [employer] Leader Goals: Pt will be compliant w/ her HEP Pt will be compliant w/ orthoses wear for CMC J protection Pt will be compliant w/ joint protection techniques /modifications Treatment Plan: Therapeutic Exercise Therapeutic Activity Home Exercise Program Splinting Neuro Re-ed Patient Education Desensitization/Sensory Re-ed Edema Control ADL Training Ultrasound NMES Iontophoresis Paraffin Fluidotherapy MHP Cold Packs Joint Mobilization Soft Tissue Mobilization Kinesiotaping Other (see comments) Electronically Signed By: Zeina Christopher OTR/L Please Sign and return to therapist. Thank you once again for your referral.
--- NOTE | 2024-12-18 14:44 | MHC.OT.DC ---
[address] [phone] F: [phone] Occupational Therapy Discharge Note Patient Name: Danae Carrasquillo Provider: Uma Peraza Diagnosis: B Hand/ joint pain OA Date of Surgery: Date of Evaluation: 11/09/24 Date of Discharge: Treatments to Date: 5 Cancellations to Date: No Shows to Date: Discharge Status: Achieved Goals Improved Function Discharge Summary: Pt tolerated therapy well today. We reviewed joint protection, HEP, and orthoses wear. She has a great understanding of management of sx's. She is OK for d/charge and is in agreement Electronically Signed By: Zeina Christopher OTR/L Reviewed/agree with student documentation: N/A Therapist: Please Sign and return to therapist, thank you for your referral.
== END 2024-12-18 14:44 | disposition home or self-care (01) ==
LOC: HO.OT 13:43
PROVIDERS: PCP Internal Medicine; Visit Provider Student in an Organized Health Care Education/Training Program
DX: M19.041 Primary osteoarthritis, right hand (principal); M19.042 Primary osteoarthritis, left hand
CPT/HCPCS: 97035; 97110; 97140; 97165; 97535

== ENCOUNTER 2024-12-18 14:34 | Outpatient (REF) | payer OTHER, SELFPAY ==
[2024-12-18 14:47] LABS: MANUAL DIFF FLAG NO
[2024-12-18 15:12] LABS: Basophils Percent Auto 0.4 % (0-2); Eosinophils Absolute Auto 0.1 X10*3/uL (0.0-0.4); Eosinophils Percent Auto 1.5 % (0-4); Hematocrit 39.5 % (37.0-47.0); Hemoglobin 13.4 g/dl (12.0-16.0); Imm Gran Abs Auto 0.02 X10*3/uL (0.00-0.03); Imm Gran Pct Auto 0.2 % (0.0-0.4); Lymphocytes Absolute Auto 2.4 X10*3/uL (1.2-4.9); Lymphocytes Percent Auto 29.9 % (20-40); Mean Corpuscular HGB Conc 33.9 g/dl (31.0-35.0); Mean Corpuscular Hemoglobin 29.9 pg (27.0-33.0); Mean Corpuscular Volume 88.2 fL (80.0-98.0); Mean Platelet Volume 9.5 fL (9.4-12.3); Monocytes Absolute Auto 0.7 X10*3/uL (0.1-1.2); Monocytes Percent Auto 8.6 % (2-11); Neutrophils Absolute Auto 4.9 x10*3/uL (2.0-8.3); Neutrophils Percent Auto 59.4 % (45-73); Platelet Count 290 X10*3/uL (160-400); Red Blood Count 4.48 X10*6/uL (4.20-5.50); White Blood Count 8.2 X10*3/uL (4.8-10.8)
[2024-12-18 15:59] LABS: Erythrocyte Sedimentation Rate 5 MM/HR (0-20)
[2024-12-18 18:08] LABS: Alanine Aminotransferase 10 U/L (0-31); Albumin Level 4.3 g/dL (3.5-5.0); Anion Gap 10 (12-20); Aspartate Amino Transferase 19 U/L (5-31); Bilirubin Total 0.4 mg/dL (0.0-1.0); Blood Urea Nitrogen 11 mg/dL (9-16); C Reactive Protein < 0.04 mg/dL (< or = 0.50); Calcium 9.7 mg/dL (8.4-10.2); Carbon Dioxide 26 mmol/L (22-29); Chloride 108 mmol/L (96-108); Estimated Glomerular Filt Rate > 60; Glucose Random 83 mg/dL (60-115); Potassium 4.3 mmol/L (3.3-5.1); Sodium 140 mmol/L (135-145)
[2024-12-18 18:10] LABS: Alkaline Phosphatase 53 U/L (39-117)
[2024-12-23 14:57] LABS: HLA B27 Negative (Negative)
== END 2024-12-18 14:35 | disposition home or self-care (01) ==
LOC: HO.LAB 14:34
PROVIDERS: PCP Internal Medicine; Visit Provider Student in an Organized Health Care Education/Training Program
DX: M25.50 Pain in unspecified joint (principal)
CPT/HCPCS: 36415; 80053; 85025; 85652; 86140; 86812

== ENCOUNTER 2024-12-22 12:54 | Outpatient (AMB) | payer OTHER, SELFPAY ==
--- NOTE | 2024-12-22 13:03 | MHC.OFFVIS ---
Vital Signs 12/22/24 13:06 Height 5 ft 8 in Weight 154 lb 12.232 oz BMI 23.5 BP 100/68 Blood Pressure Location Rt brachial Position Sitting Pulse 56 Pulse Source Pulse Oximeter Pulse Oximetry (%) 98 Oxygen Delivery Method Room Air Intake Visit Reasons: follow up Intake Note: Patient presents for follow up. Allergies No Known Allergies Allergy (Verified 12/22/24 13:05) Medication List - Last Reconciled 12/22/24 by Uma Peraza MD celecoxib (Celebrex) 200 mg PO BID diclofenac sodium 1% (Arthritis Pain (diclofenac)) 2 grams topical QID fluconazole 150 mg PO ONCE 1 day gabapentin 300 mg PO BID levonorgestrel (Mirena) 0 inserts intrauterine ONCE lorazepam 0.5 mg PO BID PRN mecobalamin (vitamin B12) 1,000 mcg sublingual DAILY sertraline (Zoloft) 25 mg PO DAILY 90 days valacyclovir 1,000 mg PO DAILY HPI Comments Details: Patient is a 43-year-old female with major recurrent depression who presents for follow up of polyarticular OA Interval History: Patient last seen 09/18/2024. At that time she was establishing care for the evaluation and management of polyarticular joint pain. History and exam at that time was consistent with likely polyarticular early osteoarthritis. Labs were sent which showed a normal ESR and CRP and evidence of joint space narrowing involving the PIPs and DIPs of bilateral hands. Today, Patient reports that she feels well. Recently had a dental procedure and currently has swelling to the left side of her face including ecchymosis around the left eye. She followed up with Dentistry who gave her ibuprofen and antibiotics. With respect to her arthritis she went to PT and found significant relief using the paraffin bath and other adjuncts that they did. She also found improvement with the topical diclofenac. She still reports pain in her hands and sometimes a throbbing pain at the base of her thumbs bilaterally especially at the end of the day. Rheumatologic History: Ddx polyarticular OA Initial history: Patient states that for the past 4 years she has been having bilateral hand pain. Pain is associated with stiffness that lasts all day. Occasionally she would have swelling to her fingers. New line also complains of numbness tingling and a burning sensation involving bilateral plantar surface of the feet. Worse at the end of the day. 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 Denies rashes, photosensitivity, alopecia, oral/nasal ulcers, sicca symptoms, lymphadenopathy, chest pain/shortness of breath, inflammatory type back pain, foamy urine, lower extremity edema, muscle weakness, Raynaud's Also denies history of seizure, CVA, psychosis, history of kidney problems, history of cytopenias, history of VTE including PE or DVTs Family history is significant for grand mother with osteoarthritis Current Rheumatology Medication(s): Diclofenac 1% qid Celebrex 200mg bid [facility] Medical History (Updated 09/18/24 @ 13:44 by Uma Peraza MD) Osteoarthritis of hands, bilateral Tarsal tunnel syndrome of both lower extremities Depression PTSD (post-traumatic stress disorder) Surgical History History of surgery Ectopic History of miscarriage Family History Father No problems noted. Mother Hypertension Maternal Grandmother Diabetes Breast cancer Maternal Grandfather Diabetes Maternal Uncle Diabetes Social History Housing: House Housing Other:: complex Patient Tobacco Use Status: Former Tobacco user Cigarettes Per Day: 4 e-Cigarette/Vaping Use: Never Used Second Hand Smoke Exposure: No service: No Current occupational status: employed Current occupational exposures/hazards: No Cognitive needs: No Hearing needs: No Vision needs: No Female Reproductive History Menstrual Age of Menarche: 11 Review of Systems Const Details: Review of Systems Constitutional: Denies fever, chills, weight loss ENT: Denies vision changes, eye pain or eye redness, dental caries, dry mouth GI: Denies nausea, vomiting, diarrhea, abdominal pain, change in BM Pulm: Denies SOB, AGUILAR, hemoptysis, wheezing Cards: Denies chest pain, palpitations Skin: Denies Raynaud's, rash, nail changes, photosensitivity, COPY CHIEF: Denies headaches, weakness, paresthesias, recurrent falls MSK: as per HPI All other systems reviewed and are unremarkable except noted above Physical Exam Vital Signs: Last Vital Signs Pulse 56 12/22/24 13:06 BP 100/68 12/22/24 13:06 Pulse Ox 98 12/22/24 13:06 Oxygen Delivery Method Room Air 12/22/24 13:06 BMI result Body Mass Index 23.5 Physical Examination CONSTITUITIONAL Patient alert and cooperative. Well appearing and in no apparent painful distress HEENT Conjunctiva and sclera clear. ?Pupils equal round and reactive to light. ?No lymphadenopathy. ?Normal dentition. No oral or nasal ulcers noted. No evidence of discoid rash to the hilario of ears CHEST/RESPIRATORY SYSTEM Normal respiratory effort and able to speak in complete sentences. ?Clear to auscultation bilaterally. ?No crackles, rales, rhonchi, wheezes heard. CARDIAC SYSTEM Regular rate and rhythm. ?S1 and S2 heard no murmurs. ?Radial pulses intact bilaterally MSK Hands: ?Good production editor strength bilaterally - 5/5. ?Heberden's and Rosa's nodes noted. Tenderness to palpation of the DIPs and PIPs bilaterally. Wrists: ?Full range of motion at the wrists without pain. ?No tenderness to palpation or synovitis noted to the wrists. Elbows: Full range of motion without pain. No tenderness, weakness, swelling, increased warmth or erythema. Shoulders: Full range of motion without pain. No tenderness, weakness, swelling, increased warmth or erythema. Hips: Full range of motion without pain. Hip bursa: No tenderness to palpation Knees: ?Full range of motion. ?No tenderness, swelling, increased warmth or erythema.?No effusion or crepitations Ankles: Full range of motion. ?No tenderness, swelling, increased warmth or erythema.? Feet: ?Negative squeeze test. ?No tenderness to palpation or swelling of the MTPs. Tender points:??No tenderness to palpation of the neck, shoulders, chest, elbows, hips, buttocks or knees. SKIN Skin intact without rashes. Results Reviewed Results Reviewed: Laboratory Tests 07/17/24 12/18/24 11:49 14:44 WBC 8.2 RBC 4.48 Hgb 13.4 Hct 39.5 Plt Count 290 ESR 5 Sodium 140 Potassium 4.3 Chloride 108 Carbon Dioxide 26 BUN 11 Creatinine 0.78 Total Bilirubin 0.4 AST 19 ALT 10 Alkaline Phosphatase 53 C-Reactive Protein < 0.04 Rheumatoid Factor < 13.0 Cycl Citrul Peptide IgG <16 XR Feet 09/2024 FINDINGS (Left): No fracture or dislocation. No significant joint space narrowing or marginal osteophytes. No osseous erosion. No abnormal soft tissue calcification. Tiny posterior calcaneal spur. FINDINGS (Right): No fracture or dislocation. No significant joint space narrowing or marginal osteophytes. No osseous erosion. No abnormal soft tissue calcification. Tiny posterior calcaneal spur. XR Hands/Wrists 09/2024 FINDINGS: No fracture. Alignment is anatomic. Joint spaces are maintained. No erosions or soft tissue calcifications. XR SI joints 09/2024 FINDINGS: Mild bilateral SI joint arthritis. No evidence of acute fracture. Chronic calcification/phleboliths in the pelvis. IUD present. Assessment & Plan Assessment & Plan (1) Osteoarthritis of hands, bilateral: Code(s): M19.041 - Primary osteoarthritis, right hand; M19.042 - Primary osteoarthritis, left hand Category: Medical Qualifiers: Osteoarthritis type: primary Qualified Code(s): M19.041 - Primary osteoarthritis, right hand; M19.042 - Primary osteoarthritis, left hand Plan: #Polyarticular OA nilda hands Patient with polyarticular osteoarthritis especially involving the hands. Even though the x-ray was read by the radiologist as normal joint spaces on my review there is narrowing evidence to the PIPs and DIPs. Without any erosions. I reviewed this with the patient and discussed that her diagnosis is truly osteoarthritis and this is likely on a background of her significant family history from her mother and her grandmother. I also discussed that the disease is likely to progress and involve other joints. Unfortunately there is no treatment for this however she can manage her pain with physical therapy and the maneuvers that she was taught. Topical diclofenac to 4 times a day and copper gloves. She can follow up yearly or sooner if needed Plan - Continue topical diclofenac gel 1% - Copper gloves - RTC 1 year or sooner - Letter written stating that patient has polyarticular arthritis involving hands and other joints precluding her from significant manual labor. Plan I spent 21 minutes reviewing the record and labs, taking a history, examining the patient, discussing the treatment plan and documenting in the medical record Coding Level of Care Code Est Pt Level 3 (94994) Diagnoses Primary osteoarthritis of both hands M19.041; M19.042 Osteoarthritis type: primary
[2024-12-22 13:06] VITALS: BP 100/68; PULSE 56; O2SAT 98; BMI 23.5
== END 2024-12-22 13:40 | disposition home or self-care (01) ==
PROVIDERS: PCP Internal Medicine; Visit Provider Student in an Organized Health Care Education/Training Program
DX: M19.041 Primary osteoarthritis, right hand (principal); M19.042 Primary osteoarthritis, left hand
CPT/HCPCS: 99213

== ENCOUNTER → 2024-12-22 12:54 | Outpatient (BNVA) | payer OTHER, SELFPAY | PROVIDERS: PCP Internal Medicine; Visit Provider Student in an Organized Health Care Education/Training Program | DX: M19.041 Primary osteoarthritis, right hand (principal); M19.042 Primary osteoarthritis, left hand | CPT/HCPCS: 99212 ==

== ENCOUNTER 2025-02-16 13:31 | Outpatient (REF) | payer OTHER, SELFPAY ==
[2025-02-19 17:43] LABS: TS Negative Control Passed; TS Panel A 0; TS Panel B 0; TS Positive Control Passed; TSpotTB Negative (Negative)
== END 2025-02-16 13:32 | disposition home or self-care (01) ==
LOC: HO.WFDLDS 13:31
PROVIDERS: Visit Provider Internal Medicine
DX: Z11.1 Encounter for screening for respiratory tuberculosis (principal)
CPT/HCPCS: 36415; 86481

== ENCOUNTER 2025-09-09 15:09 | Outpatient (REF) | payer OTHER, SELFPAY | END 2025-09-09 15:10 | disposition home or self-care (01) | LOC: HO.MAMMO 15:09 | PROVIDERS: PCP Internal Medicine; Visit Provider Advanced Practice Midwife | DX: Z12.31 Encounter for screening mammogram for malignant neoplasm of breast (principal) | CPT/HCPCS: 77063; 77067 ==

== ENCOUNTER → 2025-09-09 15:30 | Outpatient (BNV) | payer OTHER, SELFPAY | PROVIDERS: PCP Internal Medicine; Visit Provider Internal Medicine | DX: Z12.31 Encounter for screening mammogram for malignant neoplasm of breast (principal) | CPT/HCPCS: 77063; 77067 ==

== ENCOUNTER 2025-10-29 10:29 | Outpatient (REF) | payer OTHER, SELFPAY ==
--- NOTE | ~2025-10-29 | MM_ITS ---
EXAMINATION: MM DIAGNOSTIC DIGITAL BREAST TOMOSYNTHESIS, LEFT Limited left ultrasound. CLINICAL INFORMATION: Callback for asymmetry in the left breast on CC view. COMPARISON: Mammography: Prior's on PACS. TECHNIQUE: Digital breast tomosynthesis is performed in both the craniocaudal and mediolateral oblique views along with computer-aided detection (CAD). Synthesized 2D images are generated from the tomosynthesis. FINDINGS: The breasts are heterogeneously dense, which may obscure small masses. Asymmetry in the retroareolar region slightly lateral breast middle depth on CC view partially effaces on additional imaging projections. No suspicious calcifications or other abnormal findings. Targeted color Doppler ultrasound scanning from 12-3 o'clock in the upper outer quadrant demonstrates an incidental minimally complicated cyst at 1:00 1 cm from nipple measuring 4 x 4 x 4 mm. MM/MM tomosynthesis added views L IMPRESSION: Left: 1. Minimally complicated cyst on ultrasound. Benign. 2. Asymmetry retroareolar region slightly lateral breast on CC view without definite sonographic correlate. Recommend six-month follow-up mammography for further evaluation of stability. ASSESSMENT: BI-RADS Category 3: Probably benign RECOMMENDATION: 6 Month F/U Results were provided to the patient at time of visit by the technologist. This patient's information was entered into a reminder system with a target due date for their next mammogram. Electronically signed by: Alaina Laguna DO 10/29/2025 11:20 AM [place]
== END 2025-10-29 10:30 | disposition home or self-care (01) ==
LOC: HO.MAMMO 10:29
PROVIDERS: PCP Internal Medicine; Visit Provider Internal Medicine
DX: Z12.39 Encounter for other screening for malignant neoplasm of breast (principal); N64.89 Other specified disorders of breast
CPT/HCPCS: 76642; 77061; 77065

== ENCOUNTER → 2025-10-29 10:30 | Outpatient (BNV) | payer OTHER, SELFPAY | PROVIDERS: PCP Internal Medicine; Visit Provider Internal Medicine | DX: R92.8 Other abnormal and inconclusive findings on diagnostic imaging of breast (principal) | CPT/HCPCS: 77061; 77065 ==